=== PATIENT | female | born 1965 | race Caucasian/White ===

== ENCOUNTER → 2025-04-05 09:14 | Outpatient (BNVA) | payer OTHER, SELFPAY | PROVIDERS: PCP Family Medicine; Referring Provider Family Medicine; Visit Provider Internal Medicine Rheumatology | DX: M35.00 Sjogren syndrome, unspecified (principal); M05.79 Rheumatoid arthritis with rheumatoid factor of multiple sites without organ or systems involvement; Z79.899 Other long term (current) drug therapy; Z71.85 Encounter for immunization safety counseling; M06.9 Rheumatoid arthritis, unspecified; M81.0 Age-related osteoporosis without current pathological fracture | CPT/HCPCS: 36415; 80076; 82306; 82565; 85025; 85651; 86140; 86480; 86704; 86803; 87340; 99204 ==

== ENCOUNTER 2025-05-06 11:42 | Outpatient (CLI) | payer OTHER, SELFPAY ==
[2025-05-06 12:08] LABS: Basophils # 0.1 10^3/uL (0.0-0.1); Eosinophils # 0.3 10^3/uL (0.0-0.8); Lymphocytes # 2.7 10^3/uL (0.8-4.8); Mean Corpuscular HGB Conc 30.2 g/dL (30-55); Mean Corpuscular Hemoglobin 24.1 pg (27-33); Mean Corpuscular Volume 79.8 fl (85-98); Mean Platelet Volume 9.4 fL (7.4-10.4); Monocytes # 0.6 10^3/uL (0.2-0.9); Neutrophils # 3.36 10^3/uL (1.8-7.7); Neutrophils % 47.7 %; Nucleated Red Blood Cells % 0 %; Platelet Count 323 10^3/cmm (157-399); Red Blood Count 5.64 10^6/uL (3.85-5.65); Red Cell Distribution Width 15.4 % (12.1-15.1); White Blood Count 7.03 10^3/uL (3.29-11.43)
[2025-05-06 12:12] LABS: Erythrocyte Sedimentation Rate 29 mm/hr (0-15)
[2025-05-06 12:25] LABS: Alanine Aminotransferase 12 U/L (0-33); Albumin Level 3.9 g/dL (3.5-5.2); Alkaline Phosphatase 110 U/L (35-105); Aspartate Amino Transferase 19 U/L (0-32); Bilirubin Direct 0.11 mg/dL (0.00-0.30); C Reactive Protein 7.5 mg/L (0.0-4.9); Globulin 3.3 g/dL (1.3-4.6); Glomerular Filtration Rate 73.2 mL/min (90-130); Total Bilirubin 0.2 mg/dL (0.15-1.2); Total Protein 7.2 g/dL (6.6-8.7)
== END 2025-05-06 11:43 | disposition home or self-care (01) ==
LOC: LAB 11:48
PROVIDERS: PCP Family Medicine; Visit Provider Internal Medicine Rheumatology
DX: Z79.899 Other long term (current) drug therapy (principal)
CPT/HCPCS: 36415; 80076; 82565; 85025; 85651; 86140

== ENCOUNTER 2025-05-17 10:42 | Emergency (ER) | payer MEDICARE, SELFPAY ==
[2025-05-17 10:49] VITALS: BP 145/89; PULSE 84; RESP 18; TEMP 36.7; O2SAT 98
--- OUTSIDE RECORDS SUMMARY | 2025-05-17 11:03 | XMS_ITS | Clinical Summary ---
Author Organization [facility] Coral Address [facility] [address] [place] [address] Care Team Providers Care Office Machine Embossograph Operator Name Role Phone Chun Curiel MD Primary Care Provider [phone] Allergies Active Allergy Reactions Criticality Noted Date Comments Adalimumab Rash Low 11/05/2021 Lesions at injection site and rash at other locations on the body. Duloxetine Confusion Low 08/01/2021 Gabapentin Diarrhea,Rash Low 07/31/2021 Hydrocodone Diarrhea,Rash Low 07/31/2021 Leflunomide Anaphylaxis High 02/07/2025 Rash, throat swelling Morphine Diarrhea,Rash Low 07/31/2021 Nirmatrelvir-Ritonavir Nausea and Vomiting Low 01/2022 Oxycodone Diarrhea,Rash Low 07/31/2021 Prednisone Rash High 08/26/2022 Beet red from head to mid chest. Pregabalin Diarrhea,Rash Low 07/31/2021 Sulfa (Sulfonamide Antibiotics) Diarrhea,Rash Low 07/31/2021 Tramadol Diarrhea,Rash Low 07/31/2021 Medications VITAMIN B COMPLEX ORAL Take by mouth 2 times daily. Active OTHER 1,000 mg daily. Turmeric Curcumin complex 1000 mg by mouth daily Active cholecalciferol, vitamin D3, 5,000 unit Take 5,000 Units by mouth daily. Active OMEGA-3 FATTY ACIDS-FISH OIL ORAL Take 1,000 mg by mouth daily. Active omeprazole (PriLOSEC) 20 mg Capsule, Delayed Release(E.C.) Take 1 Capsule (20 mg) by mouth 2 times daily. 180 Capsule 3 022 Active amitriptyline (ELAVIL) 25 mg tablet Take 1 Tablet (25 mg) by mouth daily at bedtime. 30 Tablet 3 024 Active MAGNESIUM OXIDE ORAL Take by mouth. Active meloxicam (MOBIC) 15 mg tabletIndications:Rheum atoid arthritis involving multiple sites with positive rheumatoid factor ([facility]) Take 1 Tablet (15 mg) by mouth daily. 30 Tablet 1 024 Active Additional Information Patient not taking.Reported on 03/24/2025 pilocarpine (SALAGEN) 5 mg TabletIndications:Sjogr en's syndrome with keratoconjunctivitis sicca Take 1 Tablet (5 mg) by mouth daily. Take one tablet by mouth for 90 days 90 Tablet 3 025 Active Active Problems Problem Noted Date Diagnosed Date Piriformis syndrome of both sides 09/01/2024 Meralgia paresthetica of both lower extremities 09/01/2024 Greater trochanteric bursitis of both hips 09/01 Acute cystitis without hematuria 07/22/2023 Migraine without aura and wi thout status migrainosus, not intractable 08/29/2022 Dyslipidemia 05/05/2022 Family history of colon cancer in father 022 Plantar fasciitis of left foot 12/06/2021 Primary osteoarthritis of left foot 12/06/2021 Calcaneal spur, left foot 12/05/2021 Primary osteoarthritis involving multiple joints 08/04/2021 Irritable bowel syndrome wit h both constipation and diarrhea 08/01/2021 Rheumatoid arthritis involvi ng multiple sites with positive rheumatoid factor 07/31/2021 Sjogren's syndrome 07/31/2021 Fibromyalgia 07/31/2021 Chronic anemia 07/31/2021 Gastroesophageal reflux disease without esophagi tis 07/31/2021 Severe obesity (BMI 35.0-39.9) with comorbidity 07/31/2021 History of colon polyps 07/31/2021 Encounters Date Type Department Care Team Description 05/10/2025 External Device Data STL ABSTRACTION Provider, Abstract 04/14/2025 External Device Data STL ABSTRACTION Provider, Abstract 04/04/2025 Orders Only [facility]- [facility] [place] [facility] [address] [phone] Roverto Diane MD Immunosuppression due to drug therapy 04/03/2025 Results Follow-Up [place] [address] [place] [phone] Chun Curiel MD CBC WITH DIFFERENTIAL, COMPREHENSIVE METABOLIC PANEL, LIPID PANEL, TSH REFLEXIVE 04/01/[address] [address] Chun Curiel MD [facility] 03/28/[address] [address] Chun Curiel MD Provider Call 03/24/2025 3:00 PM CDT Office Visit [address] [phone] Chun Curiel MD Medicare annual wellness visit, subsequent (Primary Dx); Dyslipidemia; Migraine without aura and without status migrainosus, not intractable; Cervical pain (neck) from Last 3 Months Family History Medical History Relation Name Comments Colon Cancer Father Cancer Maternal Grandmother Hypertension Maternal Grandmother Kidney Disease Maternal Grandmother Hypertension Paternal Grandmother Breast Cancer Neg Hx Melanoma Neg Hx Ovarian Cancer Neg Hx Pancreatic Cancer Neg Hx Uterine or Endometrial Cance r, Not Including Cervical Neg Hx Relation Name Status Comments Father Maternal Grandmother Paternal Grandmother Social History Tobacco Use Types Packs/Day Years Used Date Smoking Tobacco: Never Passive Smoke Exposure: Never Smokeless Tobacco: Never Tobacco Cessation:Counseling Given: Not Answered Alcohol Use Standard Drinks/Week Comments Never 0 (1 standard drink = 0.6 oz pur e alcohol) Financial Resource Strain Answer Date R ecorded How hard is it for you to pa y for the very basics like food, housing, medical care, and heating? Somewhat hard 08/26/2022 Food Insecurity Answer Date Recorded In the past 12 months, have you worried that your food would run out before you had money to buy more? Often true 08/26/2022 In the past 12 months, did y ou run out of food and didn't have money to buy more? Often true 08/26/2022 Transportation Needs Answer Date Record ed In the past 12 months, has l ack of transportation kept you from medical appointments or from getting medications? No 08/26/2022 Lack of Transportation (Non-Medical) Not on file 08/26/2022 Feeling Safe Answer Date Recorded Are you in a relationship wi th someone who hurts you emotionally and/or physically? No 07/21/2023 Comments No Sex and Gender Information Value Date Recorded Sex Assigned at Not on file Legal Sex Female 12:03 PM CDT Gender Identity Not on file Sexual Orientation Not on file Last Filed Vital Signs Vital Sign Reading Time Taken Comments Blood Pressure 106/70 03/24/2025 3:06 PM CDT Pulse 73 03/24/2025 3:06 PM CDT Temperature 36.2 C (97.1 F) 03/24/2025 3:06 PM CDT Respiratory Rate 16 02/07/2025 1:27 PM CDT Oxygen Saturation 98% 03/24/2025 3:06 PM CDT Inhaled Oxygen Concentration - - Weight 95.6 kg (210 lb 12.8 oz) 03/24/2025 3:06 PM CDT Height 160 cm (5' 3 ) 03/24/2025 3:06 PM CDT Body Mass Index 37.34 03/24/2025 3:06 PM CDT Plan of Treatment Upcoming Encounters Date Type Department Care Team (Late st Contact Info) Description 03/29/2026 10:20 AM CDT Office Visit [facility] Medicine [address] [phone] Chun Curiel MD [address] [place] [phone] Health Maintenance Due Date Last Done Comments DTAP/TDAP/TD VACCINES (1 - Tdap) 1983 FIT-DNA Q 3 years 2009 FIT/FOBT Q 1 year 2009 Flex Sig/CT Colonography Q 5 years 2009 ZOSTER VACCINE (1 of 2) 2014 RSV VACCINE (60+ or ) (1 - Risk 60-74 years 1-dose series) 2024 PAP SMEAR 08/29/2025 08/29/2022 BREAST CANCER SCREENING 11/11/2025 11/11/20 24, 10/13/2024, 09/27/2022 Pre-Diabetes and Diabetes Screening 02/05/2027 02/06/2024 CERVICAL CANCER SCREENING 08/29/2027 HPV/Cotest (21-29) 08/29/2027 08/29/2022 HPV/Cotest (30-65) 08/29/2027 08/29/2022 COLORECTAL SCREENING 10/08/2027 10/08/2022, 10/08/2022, 12/08/2020 Colorectal Cancer Screening 10/08/2027 INFLUENZA VACCINE Completed 09/01/2024, 08/29/2022 Medicare Advantage (DC) Preventative Visit/Annual Wellness Visit Completed 03/24/2025, 09/01/2024, 03/20/2023, Additional history exists HEPATITIS B VACCINES Aged Out No long er eligible based on patient's age to complete this topic Procedures Procedure Name Priority Date/Time Associated Diagnosis Comments TSH REFLEXIVE Routine 03/24/2025 3:29 PM CDT Dyslipidemia LIPID PANEL Routine 03/24/2025 3:29 PM CDT Dyslipidemia COMPREHENSIVE METABOLIC PANEL Routine 03/24/2025 3:29 PM CDT Medicare annual wellness visit, subsequent CBC WITH DIFFERENTIAL Routine 03/24/2025 3:29 PM CDT Medicare annual wellness visit, subsequent MAMMO DIAG UNI RIGHT 3D ZORAN W OR WO CAD Routine 11/11/2024 1:39 PM PHP WEB DEVELOPER Inconclusive mammogram HEMOGLOBIN A1C Routine 02/06/2024 1:26 PM CDT Encounter for annual wellness visit (AWV) in Medicare patient COLONOSCOPY REPORT 10/08/2022 11 :20 AM PHP WEB DEVELOPER CERV/VAG CYTO SCREEN PAP W/HPV Routine 08/29/2022 11:03 AM CDT Routine general medical examination at health care facility Screening for malignant neoplasm of cervix from Last 3 Months or Most Recently Relevant to Health Maintenance Results * TSH REFLEXIVE (03/24/2025 3:29 PM CDT) Pathologist [facility] TSH 2.16 0.40 - 4.50 mIU/L [facility] Comment: Test Performed at: [facility] [address] [address] [address] Damon Elizabeth MD Blood 03/24/2025 3:29 PM CDT 03/25/2025 2:43 AM CDT us Chun Curiel MD CHEMISTRY ORDERABLES Final Resul [facility] [phone] [facility] [address] [address] [place] [address] * (ABNORMAL) CBC WITH DIFFERENTIAL (03/24/2025 3:29 PM CDT) [facility] WBC 8.5 3.8 - 10.8 Thousand/u L [facility] RBC 5.93(H) 3.80 - 5.10 Million/uL [facility] HEMOGLOBIN 14.6 11.7 - 15.5 g/dL [facility] HEMATOCRIT 47.3(H) 35.0 - 45.0 % [facility] MCV 79.8(L) 80.0 - 100.0 fL [facility] MCH 24.6(L) 27.0 - 33.0 pg [facility] MCHC 30.9(L) 32.0 - 36.0 g/dL [facility] Comment: For adults, a slight decrease in the calculated MCHC value (in the range of 30 to 32 g/dL) is most likely not clinically significant; however, it should be interpreted with caution in correlation with other red cell parameters and the patient's clinical condition. RDW 15.0 11.0 - 15.0 % [facility] PLATELETS 347 140 - 400 Thousand/u L [facility] MPV 10.4 7.5 - 12.5 fL [facility] NEUTROPHIL ABSOLUTE 4,590 1,500 - 7,800 cells/uL [facility] LYMPHOCYTE ABSOLUTE 3,188 850 - 3,900 cells/uL [facility] MONOCYTE ABSOLUTE 493 200 - 950 cells/uL [facility] EOSINOPHIL ABSOLUTE 170 15 - 500 cells/uL [facility] BASOPHILS ABSOLUTE 60 0 - 200 cells/uL [facility] NEUTROPHIL 54 % [facility] LYMPHOCYTES 37.5 % [facility] MONOCYTE 5.8 % [facility] EOSINOPHILS 2.0 % [facility] BASOPHILS 0.7 % [facility] Comment: Test Performed at: [facility] [address] [place] [address] Damon Elizabeth MD Blood 03/24/2025 3:29 PM CDT 03/25/2025 2:43 AM CDT us Chun Curiel MD HEMATOLOGY ORDERABLES Final Resu lt [facility] [phone] [facility] [address] [facility] [place] [address] * (ABNORMAL) LIPID PANEL (03/24/2025 3:29 PM CDT) CHOLESTEROL 169 <200 mg/dL [facility] HDL 34(L) > OR = 50 mg/dL [facility] TRIGLYCERIDE 177(H) <150 mg/dL [facility] LDL CALCULATED 106(H) mg/dL (calc) [facility] Comment: Reference range: <100 Desirable range <100 mg/dL for primary prevention; <70 mg/dL for patients with CHD or diabetic patients with > or = 2 CHD risk factors. LDL-C is now calculated using the Renea calculation, which is a validated novel method providing better accuracy than the Friedewald equation in the estimation of LDL-C. Cruzito WILDE et al. ARTHUR. 2013;310(19): 9029-6279 (http://education.Lumics.[employer]/faq/CYC998) CHOL/HDL RATIO 5.0(H) <5.0 (calc) [facility] NON-HDL CHOLESTEROL 135(H) <130 mg/dL (calc) [facility] Comment: For patients with diabetes plus 1 major ASCVD risk factor, treating to a non-HDL-C goal of <100 mg/dL (LDL-C of <70 mg/dL) is considered a therapeutic option. Test Performed at: [facility] [address] [place] [address] Damon Elizabeth MD Blood 03/24/2025 3:29 PM CDT 03/25/2025 2:43 AM CDT us Chun Curiel MD CHEMISTRY ORDERABLES Final Resul t [facility] [phone] [facility] [address] [place] [address] * (ABNORMAL) COMPREHENSIVE METABOLIC PANEL (03/24/2025 3:29 PM CDT) GLUCOSE 89 65 - 99 mg/dL [facility] Comment: Fasting reference interval BUN 17 7 - 25 mg/dL [facility] CREATININE 1.15(H) 0.50 - 1.05 mg/dL [facility] GFR 55(L) > OR = 60 mL/min/1.7 3m2 [facility] BUN/CREAT RATIO 15 6 - 22 (calc) [facility] SODIUM 143 135 - 146 mmol/L [facility] POTASSIUM 4.3 3.5 - 5.3 mmol/L [facility] CHLORIDE 107 98 - 110 mmol/L [facility] CO2 29 20 - 32 mmol/L [facility] CALCIUM 9.3 8.6 - 10.4 mg/dL [facility] TOTAL PROTEIN 7.0 6.1 - 8.1 g/dL [facility] ALBUMIN 4.1 3.6 - 5.1 g/dL [facility] GLOBULIN 2.9 1.9 - 3.7 g/dL (calc) [facility] ALBUMIN/GLOBULIN RATIO 1.4 1.0 - 2.5 (calc) [facility] BILIRUBIN TOTAL 0.4 0.2 - 1.2 mg/dL [facility] ALKALINE PHOSPHATASE 103 37 - 153 U/L [facility] AST 13 10 - 35 U/L [facility] ALT 8 6 - 29 U/L [facility] Comment: Test Performed at: [facility] [address] [facility] [place] [address] Damon Elizabeth MD Blood 03/24/2025 3:29 PM CDT 03/25/2025 2:43 AM CDT us Chun Curiel MD CHEMISTRY ORDERABLES Final Resul t [facility] [phone] [facility] [address] * MAMMO 3D ZORAN DIAGNOSTIC UNI RT 3D W OR WO CAD (11/11/2024 1:39 PM PHP WEB DEVELOPER) Anatomical Region Laterality Modality Breast Right Mammography 11/11/2024 12:2 4 PM PHP WEB DEVELOPER Impressions 11/11/2024 7:37 PM PHP WEB DEVELOPER IMPRESSION: BI-RADS 1. Negative exam. Continue annual screening mammography. Findings and verbal/written recommendations were conveyed to the patient after completion of the exam. [id number] Narrative 11/11/2024 7:37 PM PHP WEB DEVELOPER EXAMINATION: Right diagnostic mammography with tomosynthesis. Films were reviewed by CAD. Ultrasound right breast. INDICATION: Focal asymmetry right breast noted on recent screening exam COMPARISON: Mammograms dating back to 2021. FINDINGS: There are scattered fibroglandular densities. On spot compression images previously noted focal asymmetry and architectural changes near completely effaced with residual appearance similar to prior studies suggesting summation of normal tissues. Ultrasound was done to exclude underlying suspicious findings. Ultrasound right breast 10:00 position in the region of previous asymmetry shows normal focally dense tissue. No suspicious findings noted. Procedure Note Naheed Lo MD - 11/11/2024 EXAMINATION: Right diagnostic mammography with tomosynthesis. Films were reviewed by CAD. Ultrasound right breast. INDICATION: Focal asymmetry right breast noted on recent screening exam COMPARISON: Mammograms dating back to 2021. FINDINGS: There are scattered fibroglandular densities. On spot compression images previously noted focal asymmetry and architectural changes near completely effaced with residual appearance similar to prior studies suggesting summation of normal tissues. Ultrasound was done to exclude underlying suspicious findings. Ultrasound right breast 10:00 position in the region of previous asymmetry shows normal focally dense tissue. No suspicious findings noted. IMPRESSION: BI-RADS 1. Negative exam. Continue annual screening mammography. Findings and verbal/written recommendations were conveyed to the patient after completion of the exam. [id number] Jaimie Caro DIRECTOR OF TEACHER EDUCATION MAMMO ORDERABLES Final Re sult * HEMOGLOBIN A1C (02/06/2024 1:26 PM CDT) HEMOGLOBIN A1C 5.4 <5.7 % of total Hgb [facility] Comment: For the purpose of screening for the presence of diabetes: <5.7% Consistent with the absence of diabetes 5.7-6.4% Consistent with increased risk for diabetes (prediabetes) > or =6.5% Consistent with diabetes This assay result is consistent with a decreased risk of diabetes. Currently, no consensus exists regarding use of hemoglobin A1c for diagnosis of diabetes in children. According to [place] Diabetes Association (ADA) guidelines, hemoglobin A1c <7.0% represents optimal control in non- diabetic patients. Different metrics may apply to specific patient populations. Standards of Medical Care in Diabetes(ADA). ESTIMATED AVERAGE GLUCOSE (MG/DL) 108 mg/dL [facility] ESTIMATED AVERAGE GLUCOSE (MMOL/L) 6.0 mmol/L [facility] Comment: This test was performed on the [employer] c8000 platform. Please be advised that [facility] will move hemoglobin A1c testing to the Leanne platform soon. In general, direct comparison of the results from different platforms is not recommended. Test Performed at: [facility] [address] [place] [address] Damon Elizabeth MD Blood 02/06/2024 1:26 PM CDT 02/07/2024 2:45 AM CDT us Jaimie Caro DIRECTOR OF TEACHER EDUCATION CHEMISTRY ORDERABLES Dot [facility]orman Result [facility] [phone] [facility] [address] [address] [address] * COLONOSCOPY REPORT (10/08/2022 11:20 AM PHP WEB DEVELOPER) Narrative Procedure Note Saurav Richardson MD - 10/08/2022 11:20 AM CST [facility] GI Patient Name: Shasha Wesley Procedure Date: 10/08/2022 Date of : 1965 Admit Type: Outpatient Age: 56 Attending MD: Saurav Richardson , , Procedure: Colonoscopy Indications: High risk colon cancer surveillance: Personal history of non-advanced adenoma, Family history of colon cancer in a first-degree relative before age 60 years, Last colonoscopy 3 years ago Providers: Saurav Richardson Referring MD: Katie Sterling Medicines: Midazolam 4 mg IV, Fentanyl 100 micrograms IV Complications: No immediate complications. Procedure: Pre-Anesthesia Assessment: - The risks and benefits of the procedure and the sedation options and risks were discussed with the patient. All questions were answered and informed consent was obtained. - ASA Grade Assessment: II - A patient with mild systemic disease. After I obtained informed consent, the scope was passed under direct vision. Throughout the procedure, the patient's blood pressure, pulse, and oxygen saturations were monitored continuously. The Colonoscope was introduced through the anus and advanced to 5 cm into the ileum. The colonoscopy was performed without difficulty. The patient tolerated the procedure well. The quality of the bowel preparation was adequate. Estimated Blood Loss: Estimated blood loss: none. Findings: The perianal and digital rectal examinations were normal. The entire examined colon appeared normal on direct and retroflexion views. The terminal ileum appeared normal. Impression: - The entire examined colon is normal on direct and retroflexion views. - The examined portion of the ileum was normal. - No specimens collected. Recommendation: - Repeat colonoscopy in 5 years for surveillance. Saurav Richardson, 10/08/2022 11:20:04 AM Number of Addenda: 0 Note Initiated On: 10/08/2022 10:44 AM Scope Withdrawal Time 0 hours 10 minutes 2 seconds Scope In: 11:00:40 AM Scope Out: 11:12:56 AM [address] [place] Saurav Richardson MD GI PROCEDURE ORDERABLES Final Result * CERV/VAG CYTO SCREEN PAP W/HPV (08/29/2022 11:03 AM CDT) CLINICAL INFORMATION [facility] Comment:Postmenopausal LAST MENSTRUAL PERIOD [facility] [place] Comment:NONE GIVEN PREV PAP: [facility] [place] Comment:NONE GIVEN PREV BX: [facility] [place] Comment:NONE GIVEN SOURCE [facility] [place] Comment:ENDOCERVIX ADEQUACY: [facility] [place] Comment: Satisfactory for evaluation. Endocervical/transformation zone component present. Age and/or menstrual status not provided PAP INTERP [facility] [place] Comment:Negative for intraep ithelial lesion or malignancy. COMMENT (PAP TEST) [facility] [place] Comment: This Pap test has been evaluated with computer assisted technology. CERTIFIED CONTROL SYSTEMS TECHNICIAN: Sid Haines Comment: LM, CT(ASCP) CT screening location: [place] [address] [place] [address] EXPLANATORY NOTE [facility] Comment: EXPLANATORY NOTE: The Pap is a screening test for cervical cancer. It is not a diagnostic test and is subject to false negative and false positive results. It is most reliable when a satisfactory sample, regularly obtained, is submitted with relevant clinical findings and history, and when the Pap result is evaluated along with historic and current clinical information. HPV E6/E7 Not Detected Not Detected [facility] Comment: Methodology: Commercial Shrimping Captain-Mediated Amplification This assay detects E6/E7 viral messenger RNA (mRNA) from 14 high-risk HPV types (16,18,31,33,35,39,45,51,52,56,58,59,66,68). Cervical sources are required for HPV testing. If a vaginal source from a patient who has had a total hysterectomy with removal of cervix was submitted, please contact the testing laboratory for alternative testing options. For additional information, please refer to http://education.PicApp/faq/YJQ710g2 (This link if provided for information/ educational purposes only.) Test Performed at: [facility] [address] [place] [address] Gilles De La Rosa D.O., MPH [facility] Genital SWAB OF ENDOCERVIX / Unknown 08/29/2022 11:03 AM CDT 08/30/2022 6:52 AM CDT Randee KUMARP PATHOLOGY/CYTOLOGY ORDERABLES Final Result Performing Organization Address City/State/ZIP Co fl Phone Number [facility] [phone] [email or web address] [address] [place] [address] from Last 3 Months or Most Recently Relevant to Health Maintenance Insurance [facility] Advance Directives For more information, please contact: [phone] * Full Code (Latest Code Status on File) Date Activated Date Inactivated Comments 10/08/2022 9:44 AM 10/08/2022 2:00 PM Care Teams Office Machine Embossograph Operator Relationship Specialty Start Date End Date Chun Curiel MD [address] [place] [phone] PCP - General Family Practice 02/25/24
--- OUTSIDE RECORDS SUMMARY | 2025-05-17 11:04 | XMS_ITS | Patient Health Record ---
Author Organization [employer] [facility] Address [address] [facility] [address] [place] [address] Care Team Providers Care Cloud Architect Name Role Phone NOT IN COMPUTER, NOT IN COMPUTER Primary Care Pr ovider Unavailable Shakila Hernandezhlad Unavailable [phone] Allergies Allergen (clinical drug ingredient) Drug/Non Drug Allergy documented on EMR Reaction Allergy Type Onset Date Status Plaquenil, Sulfasalazine (uncoded) Unknown Allergy Active Substance with sulfonamide structure and antibacterial mechanism of action (substance) Sulfa (uncoded) Unknown Allergy Active Steroids Steroids (uncoded) Unknown Allergy A ctive All pain meds (uncoded) Unknown Allergy Active Lyrica, gabapentin (uncoded) Unknown Allergy Active Reason For Referral No Information Medications Medication SIG (Take, Route, Frequency, Duration) Notes Start Date End Date Status Pilocarpine HCl 5mg po daily A ctive Pilocarpine HCl 5 MG 1 tablet Orally once a day for 90 days 12/05/2020 Active Amitriptyline HCl 10mg po qHS Active Vitamin D2 1.25mg po weekly Not-Taking Methotrexate 2.5 MG 6 tablets Orally once per week for 90 days 05/02/2020 Active Methotrexate 15mg po weekly Ac tive Super B Complex Acti ve Ibuprofen 800mg po PRN Active Omeprazole 20mg po daily Activ e [place] 3 Active Vitamin D3 2000Iu po daily Active Ibuprofen 800 MG 1 tablet with food or milk as needed Orally twice a day as needed for joint pain for 30 days 08/22/2020 Active Social History Tobacco Use: Social History Observation Description Date Details (start date - stop date) Never Smoker NA - NA Tobacco Use/Smoking Question Answer Notes Are you a nonsmoker Section Notes: , 3 biological children not worked since 2013, 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, 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 non 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 denies etoh, drug use , 3 biological children not worked since 2013, 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, 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 non 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 denies etoh, drug use Problems Problem Type SNOMED Code ICD Code Onset Dates Problem Status W/U Status Risk Notes Problem Fibromyalgia (995166995) Fibromyalgia (M79.7) Active confirmed Problem Rheumatoid arthritis (36377432) seropositive RA (M05.79) Active confirmed Problem Serology positive (236888569) abnormal serology (R76.8) Active confirmed Problem Long-term current use of drug therapy (534149025) senior care medication use (Z79.899) Active confirmed Problem Sjogren's syndrome (48364169) Sjogren's syndrome (M35.0) Active confirmed Plan Of Treatment No Information Insurance Providers Payer Name Payer Address Payer Phone Subscriber Number Group Number Insured Name Patient Relationship to Insured Coverage Start Date Coverage End Date [employer] [address] [address] [place] [id number] Shasha Rush Self - patient is the insured Medical (General) History Medical History History ICD Code RA, Sjogren's syndrome: RF 2 3, neg CCP, long history of sx, formal dx 2004 (Dr. Roberto Dupont, [place], 2 visits only), no rheum f/u until 2019 (Dr. Roberto Aguero, [place], [place]); allergy to HCQ (face rash, throat closing); start MTX PO in 2019, tolerating well Fibromyalgia 04/2020: SSA >8, neg JOHANNA, SSB, Sm, LEAD DATA ENTRY OPERATOR, d sDNA, CCP, normal SPEP 07/2020: neg Q Gold, RF 23 Surgical History Surgery Date(Month/Year) Tubal ligation
--- OUTSIDE RECORDS SUMMARY | 2025-05-17 11:04 | XMS_ITS | Encounter Summary ---
Author Organization [facility] Address [address] [place] [address] Care Team Providers Care Environmental Compliance Officer Name Role Phone Chun Curiel MD Primary Care Provider [phone] Encounter Details Date Type Department Care Team (Late Contact Info) Description 05/10/2025 External Device Data [place] ABSTRACTION Provider, Abstract NO ADDRESS ON FILE Social History Tobacco Use Types Packs/Day Years Used Date Smoking Tobacco: Never Passive Smoke Exposure: Never Smokeless Tobacco: Never Alcohol Use Standard Drinks/Week Comments Never 0 [...] on file Sexual Orientation Not on file documented as of this encounter Plan of Treatment Upcoming Encounters Date Type Department Care Team (Late Contact Info) Description 03/29/2026 10:20 AM CDT Office Visit [facility] Medicine [facility] [address] [phone] Chun Curiel MD [address] [place] [phone] documented as of this encounter Visit Diagnoses Not on filedocumented in this encounter Additional Health Concerns Assessment Noted Time PHQ-9 Depression Total Score: 1 03/24/20 25 2:59 PM CDT documented as of this encounter Care Teams Environmental Compliance Officer Relationship Specialty Start Date End Date Chun Curiel MD [address] [phone] PCP - General Family Practice 02/25/24 documented as of this encounter
--- OUTSIDE RECORDS SUMMARY | 2025-05-17 11:04 | XMS_ITS | Encounter Summary ---
Author Organization [facility] Address [address] [place] [address] Care Team Providers Care Sound Installation Worker Name Role Phone Chun Curiel MD Primary Care Provider [phone] Encounter Details Date Type Department Care Team (Latest Contact Info) Description 04/03/2025 Results Follow-Up [facility] Medicine [address] [phone] Chun Curiel MD [address] [phone] CBC WITH DIFFERENTIAL, COMPREHENSIVE METABOLIC PANEL, LIPID PANEL, TSH REFLEXIVE Social History Tobacco Use Types Packs/Day Years [...] on file documented as of this encounter Miscellaneous Notes * Result Encounter Note - Shannan Dick - 04/05/2025 10:46 AM CDT Patient's given the results. stated that the patient was with the doctor. Please send the hematology referral. * Result Encounter Note - Sydnie Farnsworth - 04/04/2025 11:33 AM CDT Called and was not able to leave a message due to in-box being full. documented in this encounter Plan of Treatment Upcoming Encounters Date Type Department Care Team (Late st Contact Info) Description 03/29/2026 10:20 AM CDT Office Visit [facility] Medicine [address] [phone] Chun Curiel MD [address] [place] [phone] documented as of this encounter Visit Diagnoses Not on filedocumented in this encounter Additional Health Concerns Assessment Noted Time PHQ-9 Depression Total Score: 1 03/24/20 25 2:59 PM CDT documented as of this encounter Care Teams Sound Installation Worker Relationship Specialty Start Date End Date Chun Curiel MD [address] [phone] PCP - General Family Practice 02/25/24 documented as of this encounter
[2025-05-17 11:37] LABS: Basophils # 0.1 10^3/uL (0.0-0.1); Basophils % 0.5 %; Eosinophils # 0.1 10^3/uL (0.0-0.8); Eosinophils % 0.8 %; Hematocrit 43.8 % (36-47); Lymphocytes # 2.8 10^3/uL (0.8-4.8); Lymphocytes % 22.1 %; Mean Corpuscular HGB Conc 31.5 g/dL (30-55); Mean Corpuscular Hemoglobin 24.8 pg (27-33); Mean Corpuscular Volume 78.6 fl (85-98); Mean Platelet Volume 9.6 fL (7.4-10.4); Monocytes % 7.6 %; Neutrophils # 8.72 10^3/uL (1.8-7.7); Neutrophils % 68.7 %; Nucleated Red Blood Cells % 0 %; Platelet Count 320 10^3/cmm (157-399); Red Blood Count 5.57 10^6/uL (3.85-5.65); Red Cell Distribution Width 15.5 % (12.1-15.1); White Blood Count 12.68 10^3/uL (3.29-11.43)
[2025-05-17 11:58] LABS: Alanine Aminotransferase 6 U/L (0-33); Albumin Level 3.7 g/dL (3.5-5.2); Alkaline Phosphatase 113 U/L (35-105); Anion Gap 18.7 (5-19); Aspartate Amino Transferase 13 U/L (0-32); Blood Urea Nitrogen 13 mg/dL (8-23); Calcium 8.6 mg/dL (8.5-10.5); Carbon Dioxide 18 mmol/L (22-29); Chloride 106 mmol/L (98-107); Globulin 3.7 g/dL (1.3-4.6); Glomerular Filtration Rate 85.4 mL/min (90-130); Glucose 87 mg/dL (65-115); Lipase 35 U/L (13-60); Osmolality Calculated 287 mOsm/kg (285-295); Potassium 3.7 mmol/L (3.5-5.1); Sodium 139 mmol/L (136-145); Total Bilirubin 0.5 mg/dL (0.15-1.2); Total Protein 7.4 g/dL (6.6-8.7)
[2025-05-17 12:43] LABS: Bilirubin Urine Negative (Negative); Blood Urine Negative (Negative); Glucose Urine UA Negative (Normal); Ketones Urine Trace (Negative); Leukocyte Esterase Urine 2+ (Negative); Nitrate Urine Negative (Negative); Protein Urine Trace (Negative); Urine Appearance Cloudy (CLEAR); Urine Color Yellow (Yellow); pH Urine 5.5 (5-7)
[2025-05-17 12:45] LABS: Add Urine Microscopic? YES; Bacteria Urine Trace /hpf; RBC Urine 0-2 /hpf (0-2); WBC Urine 21-50 /hpf (0-5)
[2025-05-17 12:54] LABS: Add Urine Culture? Yes
--- NOTE | 2025-05-17 13:21 | US_ITS ---
WS: [id number] RIGHT UPPER QUADRANT ULTRASOUND HISTORY: ruq pain COMPARISON: None available. Liver: 15.3 cm in length. Normal size liver and echogenicity. No bile duct dilatation or mass. Portal Vein: Normal hepatopetal flow with monophasic waveform. Gallbladder: Normally distended gallbladder with stones. No wall thickening or pericholecystic fluid. CBD: 0.3 cm Pancreas: Normal size and echogenicity. Right kidney: 9.4 cm in length. Normal size and echogenicity. No hydronephrosis or mass. Aorta and IVC: Unremarkable abdominal aorta and IVC. No ascites. US/US gall bladder [id number] IMPRESSION: Cholelithiasis without evidence for acute cholecystitis.
--- NOTE | 2025-05-17 13:22 | W.ED.ABDPA2 ---
HPI - Abdominal Pain General: Chief Complaint: Abdominal Pain Stated Complaint: right side back/abdominal pain Time Seen by Provider: 05/17/25 13:04 Source: patient Mode of arrival: ambulatory Limitations: no limitations History of Present Illness: 59-year-old female states that she has been having right upper quadrant abdominal pains going on for the last 3 days states it radiates to her back states that it comes and goes denies any worse or improving factors she rates her pain an 8 out of 10 currently she has nausea no vomiting denies any fever no history of cholecystectomy in the past Associated Symptoms: Reports nausea; Denies chills, diarrhea, dysuria, fever(s) and vomiting Related Data Home Medications ?Medication ?Instructions ?Recorded ?Confirmed amitriptyline 10 mg tablet 10 mg PO DAILY 07/14/22 04/05/25 omega 7-szi-nrt-fish oil 100 cap PO 07/14/22 04/05/25 mg-160 mg-1,000 mg capsule (Fish Oil) Previous Rx's ?Medication ?Instructions ?Recorded azathioprine 50 mg tablet 50 mg PO BID #60 tabs 04/05/25 pilocarpine HCl 5 mg tablet 5 mg PO TID #90 tabs 04/05/25 ondansetron 4 mg disintegrating 4 mg PO Q6H PRN nausea and 05/17/25 tablet vomiting #14 tabs Allergies Allergy/AdvReac Type Severity Reaction Status Date / Time morphine Allergy Severe ALGY-Anaphy Verified 04/05/25 10:09 laxis nirmatrelvir (From Paxlovid) Allergy Severe ALGY-Anaphy Verified 04/05/25 10:01 laxis ritonavir (From Paxlovid) Allergy Severe ALGY-Anaphy Verified 04/05/25 10:01 laxis adalimumab (From Humira) Allergy Intermediate adv-rash Verified 04/05/25 10:09 pregabalin (From Lyrica) Allergy Intermediate migraine Verified 04/05/25 10:09 Opioids - Morphine Analogues Allergy Unknown Verified 04/05/25 10:01 Sulfa (Sulfonamide Allergy Unknown Verified 04/05/25 10:01 Antibiotics) opioids Allergy Unknown Uncoded 04/05/25 10:01 steroids Allergy Unknown Uncoded 04/05/25 10:01 Review of Systems Const: Denies: fever(s), chills, body aches or change in appetite ENMT: Denies: throat pain or dental pain Card: Denies: chest pain Resp: Denies: dyspnea GI: Reports: abdominal pain and nausea; Denies: vomiting or diarrhea : Denies: dysuria Musc: Denies: neck pain or back pain Skin/Breast: Denies: rash Neuro: Denies: headache(s) PFSH ED PFSH: Medical History Seropositive rheumatoid arthritis of multiple sites Immunization counseling High risk medication use Primary Sjogren's syndrome Rheumatoid arthritis Surgical History (Updated 04/05/25 @ 13:16 by Abilio Morales MD) History of tubal ligation Family History (Updated 04/05/25 @ 10:07 by Ameena Fraga LPN) Other Cancer Diabetes Heart disease Hypertension Lupus (systemic lupus erythematosus) Migraines Osteoporosis Rheumatoid arthritis Social History Smoking and tobacco/nicotine status: never used tobacco/nicotine Female Reproductive History: Spontaneous abortions: No Physical Exam Const: COMMON NORMALS: no acute distress, patient oriented x3 and healthy appearing HENMT: COMMON NORMALS: normocephalic and atraumatic HEAD & SCALP: normocephalic and atraumatic Neck/C-Spine: COMMON NORMALS: full ROM and supple Chest: COMMONS NORMALS: normal inspection of the chest Resp: COMMON NORMALS: normal respiratory effort, No retractions, No use of accessory muscles and clear to auscultation bilaterally AUSCULTATION: clear to auscultation bilaterally Cardio: COMMON NORMALS: regular rate, regular rhythm and No murmurs present (Cardio) RATE: regular rate RHYTHM: regular rhythm GI: COMMON NORMALS: Normal to inspection, nondistended, normoactive bowel sounds present, Soft to palpation and no masses PALPATION: Yes Soft to palpation and Yes Tenderness to palpation present (GI) Details: RUQ Extremity: COMMON NORMALS: normal to inspection and full ROM Neuro: COMMON NORMALS: patient oriented x3, moves all extremities and no focal motor deficits Psych: COMMON NORMALS: mental status grossly normal, Normal thought process present and cooperative THOUGHT PROCESS: Normal thought process present Skin: COMMON NORMALS: no rashes or lesions noted and no wounds GENERAL SKIN EXAM: no rashes or lesions noted Course Vital Signs: Vital signs: Vital Signs Temperature 98.0 F 05/17/25 10:49 Pulse Rate 73 05/17/25 15:00 Respiratory Rate 18 05/17/25 10:49 Blood Pressure 110/62 05/17/25 15:00 Pulse Oximetry 97 05/17/25 15:00 Oxygen Delivery Me thod Room Air 05/17/25 15:00 MDM - Abdominal Pain Medical Decision Making Patient presents with abdominal pain likely biliary colic from cholelithiasis no signs of cholecystitis her pain improved here after Toradol abdominal exam at discharge benign we will get her follow-up with surgery she is return if worsening she understands agrees plan Medical Records I reviewed the patient's medical records. Lab Data I reviewed the patient's lab results. 05/17/25 11:23 05/17/25 11:23 Labs/Radiology: Radiology Impressions Gallbladder Ultrasound 05/17/25 13:21 IMPRESSION: Cholelithiasis without evidence for acute cholecystitis. Abdomen/Pelvis CT 05/17/25 14:17 IMPRESSION: 1. No acute abdominal or pelvic abnormalities. 2. Cholelithiasis without evidence for acute cholecystitis. 3. No GI tract obstruction. 4. No pancreatitis. 5. Minimal diverticular disease without acute diverticulitis. 6. Normal appendix. Laboratory Results WBC 12.68 10^3/uL (3.29-11.43) H 05/17/25 11:23 RBC 5.57 10^6/uL (3.85-5.65) 05/17/25 11:23 Hgb 13.80 g/dL (11.27-16.99) 05/17/25 11:23 Hct 43.8 % (36-47) 05/17/25 11:23 MCV 78.6 fl (85-98) L 05/17/25 11:23 MCH 24.8 pg (27-33) L 05/17/25 11:23 MCHC 31.5 g/dL (30-55) 05/17/25 11:23 RDW 15.5 % (12.1-15.1) H 05/17/25 11:23 Plt Count 320 10^3/cmm (157-399) 05/17/25 11:23 MPV 9.6 fL (7.4-10.4) 05/17/25 11:23 Neut % (Auto) 68.7 % 05/17/25 11:23 Lymph % (Auto) 22.1 % 05/17/25 11:23 [place] % (Auto) 7.6 % 05/17/25 11:23 Eos % (Auto) 0.8 % 05/17/25 11:23 Baso % (Auto) 0.5 % 05/17/25 11:23 Neut # (Auto) 8.72 10^3/uL (1.8-7.7) H 05/17/25 11:23 Lymph # (Auto) 2.8 10^3/uL (0.8-4.8) 05/17/25 11:23 [place] # (Auto) 1.0 10^3/uL (0.2-0.9) H 05/17/25 11:23 Eos # (Auto) 0.1 10^3/uL (0.0-0.8) 05/17/25 11:23 Baso # (Auto) 0.1 10^3/uL (0.0-0.1) 05/17/25 11:23 Nucleated RBC % (auto) 0 % 05/17/25 11:23 Nucleated RBCs # 0.0 /100WBC 05/17/25 11:23 Sodium 139 mmol/L (136-145) 05/17/25 11:23 Potassium 3.7 mmol/L (3.5-5.1) 05/17/25 11:23 Chloride 106 mmol/L (98-107) 05/17/25 11:23 Carbon Dioxide 18 mmol/L (22-29) L 05/17/25 11:23 Anion Gap 18.7 (5-19) 05/17/25 11:23 BUN 13 mg/dL (8-23) 05/17/25 11:23 Creatinine 0.7 mg/dL (0.5-0.9) 05/17/25 11:23 GFR Calculation 85.4 mL/min (90-130) L 05/17/25 11:23 Glucose 87 mg/dL (65-115) 05/17/25 11:23 Calculated Osmolality 287 mOsm/kg (285-295) 05/17/25 11:23 Calcium 8.6 mg/dL (8.5-10.5) 05/17/25 11:23 Total Bilirubin 0.5 mg/dL (0.15-1.2) 05/17/25 11:23 AST 13 U/L (0-32) 05/17/25 11:23 ALT 6 U/L (0-33) 05/17/25 11:23 Alkaline Phosphatase 113 U/L (35-105) H 05/17/25 11:23 Total Protein 7.4 g/dL (6.6-8.7) 05/17/25 11:23 Albumin 3.7 g/dL (3.5-5.2) 05/17/25 11:23 Globulin 3.7 g/dL (1.3-4.6) 05/17/25 11:23 Lipase 35 U/L (13-60) 05/17/25 11:23 Urine Color Yellow (Yellow) 05/17/25 12:30 Urine Appearance Cloudy (CLEAR) A 05/17/25 12:30 Urine pH 5.5 (5-7) 05/17/25 12:30 Ur Specific [place] 1.020 (1.005-1.030) 05/17/25 12:30 Urine Protein Trace (Negative) A 05/17/25 12:30 Urine Glucose (UA) Negative (Normal) 05/17/25 12:30 Urine Ketones Trace (Negative) 05/17/25 12:30 Urine Blood Negative (Negative) 05/17/25 12:30 Urine Nitrate Negative (Negative) 05/17/25 12:30 Urine Bilirubin Negative (Negative) 05/17/25 12:30 Urine Urobilinogen 1.0 mg/dL (Negative) 05/17/25 12:30 Ur Leukocyte Esterase 2+ (Negative) A 05/17/25 12:30 Urine RBC 0-2 /hpf (0-2) 05/17/25 12:30 Urine WBC 21-50 /hpf (0-5) H 05/17/25 12:30 Ur Squamous Epith Cells 11-20 /hpf (0-5) H 05/17/25 12:30 Amorphous Sediment Not Reportable 05/17/25 12:30 Urine Bacteria Trace /hpf (NONE) 05/17/25 12:30 Hyaline Casts 0.40 /lpf 05/17/25 12:30 All radiology interpretation(s) finalized by discharge Discharge Plan Discharge Patient Disposition: Home Clinical Impression: Cholelithiasis Abdominal pain Qualifiers: Abdominal location: upper abdomen, unspecified Qualified Code(s): R10.10 - Upper abdominal pain, unspecified Condition: Stable Prescriptions: New ondansetron 4 mg tablet,disintegrating 4 mg PO Q6H PRN (Reason: nausea and vomiting) Qty: 14 0RF No Action pilocarpine HCl 5 mg tablet 5 mg PO TID Qty: 90 5RF azathioprine 50 mg tablet 50 mg PO BID Qty: 60 5RF amitriptyline 10 mg tablet 10 mg PO DAILY Fish Oil 100-160-1,000 mg capsule PO Discharge Orders: Discharge ED (Routine); Ordered 05/17/25 Ordered By: Gregor Oakes Referrals: Geraldo Fay MD [Physician, General Surgery] - 4-7 days Ketan Govea [Primary Care Provider, Family Practice] Discharge Diet: Advance as tolerated Discharge Activity: Resume usual activity Patient Instructions: Biliary Colic (ED), Abdominal Pain (ED) Print Language: Greek Coding Level of Care Code ED Community Engagement Leader for Abigail De Paz
[2025-05-17 14:00] VITALS: BP 118/78; PULSE 81; O2SAT 98
--- NOTE | 2025-05-17 14:17 | CT_ITS ---
WS: [id number] CT ABDOMEN AND PELVIS WITH CONTRAST HISTORY: abd pain TECHNIQUE: Imaging performed of the abdomen and pelvis with IV contrast. Single phase imaging of the abdomen. Coronal and sagittal reformats are submitted. All CT scans at [facility] use at least one of these dose optimization techniques: automated exposure control; mA and/or kV adjustment per patient size (includes targeted exams where dose is matched to clinical indication); or iterative reconstruction. IV CONTRAST: Omnipaque 350; 100 mL IV. Oral contrast: No DLP: 934.31 mGy.cm COMPARISON: Gallbladder ultrasound 05/17/2025 Lower thorax: Lung bases are clear. Heart is normal size. Small hiatal hernia. Liver/biliary system: Normal size liver. No intrahepatic duct dilatation. Central hepatic cysts between the middle and LEFT hepatic veins. Portal vein is normal. Gallbladder: Well-distended gallbladder with stones. No adjacent inflammation. Pancreas: Normal size pancreas and pancreatic duct. No adjacent inflammation. Spleen: Normal size spleen. No mass or infarct. Adrenal glands: Normal. Right kidney: Normal. Left kidney: Normal. Aorta: Normal. Lymphadenopathy: None. Free fluid: None. GI tract: No obstruction. Mild diffuse constipation. Normal appendix. Scattered diverticula with no acute diverticulitis. Abdominal wall: Intact. Pelvis: No free fluid or adenopathy within the pelvis. Bones: Unremarkable. CT/CT abdomen pelvis w con* [id number] IMPRESSION: 1. No acute abdominal or pelvic abnormalities. 2. Cholelithiasis without evidence for acute cholecystitis. 3. No GI tract obstruction. 4. No pancreatitis. 5. Minimal diverticular disease without acute diverticulitis. 6. Normal appendix.
[2025-05-17] MEDS: iohexol 350 mg/mL 500 mL Btl (per mL) IV (14:42)
[2025-05-17 15:00] VITALS: BP 110/62; PULSE 73; O2SAT 97
[2025-05-17] MEDS: ketorolac 30 mg/mL INJ 15 MG IVP (15:04)
[2025-05-17 15:48] VITALS: BP 132/71; PULSE 82; O2SAT 96
== END 2025-05-17 15:49 | disposition home or self-care (01) ==
PROVIDERS: Emergency Provider Emergency Medicine; PCP Family Medicine
DX: K80.20 Calculus of gallbladder without cholecystitis without obstruction (principal); R10.10 Upper abdominal pain, unspecified
CPT/HCPCS: 36415; 74177; 76705; 80053; 81001; 83690; 85025; 87086; 96374; 99285; J1885

== ENCOUNTER → 2025-05-19 10:33 | Outpatient (BNVA) | payer MEDICARE, SELFPAY | PROVIDERS: PCP Family Medicine; Visit Provider Surgery | DX: K82.9 Disease of gallbladder, unspecified (principal) | CPT/HCPCS: 99204 ==

== ENCOUNTER 2025-05-30 06:20 | Day surgery (SDC) | payer MEDICARE, SELFPAY ==
[2025-05-30] VITALS (20 sets, daily range): BP systolic 99–139; BP diastolic 54–78; PULSE 70–85; RESP 7–20; TEMP 36.1–36.3; O2SAT 92–100; BMI 36.5
--- NOTE | 2025-05-30 07:35 | P.ANESASSM_ITS ---
Pre-Anesthetic Assessment Height/Weight: Height 1.6 m Weight 93.44 kg O2 Del Method Room Air 05/30/25 06:43 Operation Date: 05/30/25 09:00 Proposed Procedures p Laparoscopic Cholecystectomy 46003 K82.9(Not Applicable) - Ketan Read MD Familial anesthetic complications: Allergy to opioids - says she can't take any and to treat her pain with toradol and tylenol Was Beta Kranthi taken within 24 hours: N/A Was Clonidine taken within 24 hours: N/A Last intake: Intake Last Liquid Date 05/29/25 Last Liquid Time 21:00 Last Solid Date 05/28/25 Last Solid Time 18:00 Social No alcohol and No tobacco Exam alert, oriented x 3, clear to auscultation bilaterally and regular rate & rhythm Airway Mallampati: Class II Dentition: other (missing) Musc/skel Rheumatoid Arthritis Sjogren's Anesthetic Plan ASA status: 2 Anesthesia: General Risk of > 500 ml blood loss (7ml/kg in children): No Other Pertinent Information NO opioids per patient request d/t allergy/intolerance Medications/Allergies Home Medications ?Medication ?Instructions ?Recorded ?Confirmed ?Last Taken ?Type amitriptyline 10 mg tablet 10 mg PO DAILY 07/14/2206/1705/12/25 History omega 9-vis-fxv-fish oil 100 2 cap PO DAILY 07/14/22 0 05/30/25 05/12/25 History mg-160 mg-1,000 mg capsule (Fish Oil) azathioprine 50 mg tablet 50 mg PO BID #60 tabs 05/30/25 05/12/25 Rx pilocarpine HCl 5 mg tablet 5 mg PO TID #90 tabs 04/0505/30/25 05/12/25 Rx ondansetron 4 mg disintegrating 4 mg PO Q6H PRN nausea and 05/17/25 05/30/25 05/12/25 Rx tablet vomiting #14 tabs Allergies Allergy/AdvReac Type Severity Reaction Status Date / Time morphine Allergy Severe ALGY-Anaphy Verified 05/30/25 06:36 laxis nirmatrelvir (From Paxlovid) Allergy Severe ALGY-Anaphy Verified 05/30/25 06:36 laxis ritonavir (From Paxlovid) Allergy Severe ALGY-Anaphy Verified 05/30/25 06:36 laxis adalimumab (From Humira) Allergy Intermediate adv-rash Verified 05/30/25 06:36 pregabalin (From Lyrica) Allergy Intermediate migraine Verified 05/30/25 06:36 Opioids - Morphine Analogues Allergy Unknown Verified 05/30/25 06:36 Sulfa (Sulfonamide Allergy Unknown Verified 05/30/25 06:36 Antibiotics) opioids Allergy Unknown Uncoded 05/19/25 10:39 steroids Allergy Unknown Uncoded 05/19/25 10:39 [facility] Anesthesia Medical History Seropositive rheumatoid arthritis of multiple sites Immunization counseling High risk medication use Primary Sjogren's syndrome Rheumatoid arthritis Surgical History History of tubal ligation Family History Other Cancer Diabetes Heart disease Hypertension Lupus (systemic lupus erythematosus) Migraines Osteoporosis Rheumatoid arthritis Social History Smoking and tobacco/nicotine status: former use of tobacco/nicotine Female Reproductive History Spontaneous abortions: No
--- NOTE | 2025-05-30 08:16 | W.PM.OPSUD ---
Surgery/Procedure H&P Update DATE OF PROCEDURE: May 30, 2025 DATE H&P PERFORMED: 05/19/25 H&P UPDATE INFORMATION: I have reviewed H&P completed within last 30 days, I have examined patient prior to procedure, No changes to prior documentation, H&P is in [facility] EMR on date indicated and Risks and benefits of the procedure reviewed PLANNED PROCEDURE: Operation Date: 05/30/25 09:00 Proposed Procedures p Laparoscopic Cholecystectomy 86776 K82.9(Not Applicable) - Ketan Read MD
[2025-05-30] MEDS: ceFAZolin 2,000 mg SDV 2000 MG IVP (08:49)
[2025-05-30] MEDS: lidocaine-epi 1% 20 mL INJ 10 ML INJECTION (10:38)
[2025-05-30] MEDS: BUPivacaine 0.25% INJ 10 mL INJECTION (10:38)
--- NOTE | 2025-05-30 11:07 | PM.OP ---
Operative Report Date of procedure: May 30, 2025 Pre-op diagnosis: Biliary colic Post-op diagnosis: Same Post-op findings: Gallbladder appeared to be chronically inflamed, there was significant fat infiltration of the hepatocystic triangle. Otherwise normal biliary anatomy Procedure done: Laparoscopic cholecystectomy Surgeon: Ketan Read MD Accounts Payable Representative: KENAN OR Staff Estimated blood loss: 10 Brief History: This is a 59-year-old female who presents to my office for evaluation for possible cholecystectomy for biliary colic. After discussion we will resume benefits with side to proceed. Procedure: Patient was brought into the OR, she was placed in a supine position. General anesthesia was given. The abdomen was prepped and draped in the usual sterile fashion. A timeout was conducted. the abdomen was accessed via a 5 mm Optiview trocar in the left upper quadrant. Pneumoperitoneum was obtained and no evidence of visceral injury during entry was noted. A 12 mm trocar was placed under direct visualization in the supraumbilical position. Additional 5 mm trocars were placed in the right flank right upper quadrant and epigastrium and 30 direct visualization. The gallbladder was grasped by the fundus and retracted cephalad. Visualization of the hepatocystic triangle was difficult due to the severe fatty infiltration of the area. I grasped the infundibulum and retracted in the inferolateral direction, I then made an opening on the peritoneum anterior to the area where the hepatocystic triangle was suspected to be found. This opening was carried in the medial and lateral direction to the edges of the liver and then on the sides of the gallbladder to follow-up for better visualization. Unfortunately a small hole was made in the gallbladder wall on the left side during this maneuver. The bile was aspirated and the area was suctioned and irrigated. With careful blunt dissection and electrocautery With significant effort I was able to encircle the cystic duct, the cystic artery and I was able to elevate the lower third of the gallbladder from the liver bed thus creating a critical view of safety. The cystic artery and cystic duct were double clipped proximally and single clipped distally and transected. The gallbladder was removed from the liver bed using electrocautery. Small areas of bleeding from the liver bed were controlled with electrocautery. After removal of the gallbladder to the liver bed it was hemostatic and no evidence of bile leak was noted. The gallbladder was retrieved via the umbilical trocar site in an Endo Catch bag. 1 final inspection of the liver bed showed no evidence of bleeding, no bile leak and clips in good position. The area was irrigated and suctioned as well as the right upper quadrant. The umbilical trocar was removed and the area was closed with a Nick-Altagracia suture passer under direct visualization using 0 Vicryl. The epigastrium right upper quadrant right flank trocars were removed under direct visualization, the left upper quadrant trocar was used to acquire the pneumoperitoneum and subsequently removed. Local anesthesia was infiltrated in all the wounds. Hemostasis was achieved. The wounds were closed in layers using #3-0 Vicryl for subcutaneous tissue #4 Monocryl for the skin and Dermabond was applied. At the end of the procedure all counts were correct the patient tolerated well the procedure was transferred to the PACU in stable condition
[2025-05-30] MEDS: ondansetron 2 mg/ML SDV 2 mL 4 MG IVP ×2 (11:17→11:31)
[2025-05-30] MEDS: fentaNYL 50 mcg/mL INJ 2mL IVP ×2 (11:22→11:43)
[2025-05-30] MEDS: metoclopramide 5 mg/mL SDV 2 mL 10 MG IVP (11:48)
--- NOTE | 2025-05-30 12:36 | PC.NURSE ---
Pt not able to take pain meds. Wants to just rest here for a while before going home
--- NOTE | 2025-05-30 13:20 | ANE.PACU2 ---
Inpatient post-anesthesia follow up: Airway intact: Yes Vital signs: Temperature 97.3 F Pulse Rate 80 Respiratory Rate 18 Blood Pressure 132/70 Pulse Oximetry 95 Oxygen Delivery Me thod Room Air Oxygen Flow Rate 4 Fraction of Inspir ed Oxygen Hydration adequate: Yes Nausea and vomiting: No Pain level: 1 Mental status: Baseline
== END 2025-05-30 13:20 | disposition home or self-care (01) ==
PROVIDERS: PCP Family Medicine; Visit Provider Surgery
PROC: 0FT44ZZ Resection of Gallbladder, Percutaneous Endoscopic Approach (ICD-10-PCS; CPT 47562; principal; 2025-05-30 08:50)
DX: K80.10 Calculus of gallbladder with chronic cholecystitis without obstruction (principal); K80.50 Calculus of bile duct without cholangitis or cholecystitis without obstruction; M06.9 Rheumatoid arthritis, unspecified; M35.00 Sjogren syndrome, unspecified; Z87.891 Personal history of nicotine dependence
CPT/HCPCS: 47562; 88304; J0330; J0690; J2250; J2405; J2704; J2765; J3010; J3490; J7030; J9999

== ENCOUNTER → 2025-06-14 07:50 | Outpatient (BNVA) | payer MEDICARE, SELFPAY | PROVIDERS: PCP Family Medicine; Visit Provider Surgery | DX: Z90.49 Acquired absence of other specified parts of digestive tract (principal); Z98.890 Other specified postprocedural states | CPT/HCPCS: 99024 ==

== ENCOUNTER 2025-06-22 14:47 | Emergency (ER) | payer MEDICARE, SELFPAY ==
--- OUTSIDE RECORDS SUMMARY | 2025-06-22 11:30 | XMS_ITS | Encounter Summary ---
Author Organization [facility] Address [address] [place] [address] Care Team Providers Care Beam Builder Helper Name Role Phone Chun Curiel MD Primary Care Provider [phone] Encounter Details Date Type Department Care Team (Latest Contact Info) Description 06/22/2025 11:30 AM CDT Ancillary Procedure [facility] ([place], [place]) [address] [phone] Jaimie Caro FNP [address] [phone] Pleuritic chest pain Social History Tobacco Use Types Packs/Day Years Used Date Smoking Tobacco: Never Passive Smoke Exposure: Never Smokeless Tobacco: Never Alcohol Use Standard Drinks/Week Comments Never 0 (1 standard drink = 0.6 oz pur e alcohol) Comments No Sex and Gender Information Value Date Recorded Sex Assigned at Not on file Legal Sex Female 12:03 PM CDT Gender Identity Not on file Sexual Orientation Not on file documented as of this encounter Plan of Treatment Upcoming Encounters Date Type Department Care Team (Late st Contact Info) Description 03/29/2026 10:20 AM CDT Office Visit [address] [phone] Chun Curiel MD [address] [phone] documented as of this encounter Procedures Procedure Name Priority Date/Time Associated Diagnosis Comments XR CHEST PA AND LATERAL 2 VW Routine 06/22/2025 11:26 AM CDT Pleuritic chest pain documented in this encounter Results * XR CHEST PA AND LATERAL 2 VW (06/22/2025 11:26 AM CDT) Anatomical Region Laterality Modality Chest Computed Radiogr aphy 06/22/2025 11:2 6 AM CDT Impressions 06/22/2025 12:38 PM CDT IMPRESSION: See below. Exam: XR CHEST PA AND LATERAL 2 VW Date/Time of Exam: 06/22/2025 11:26 AM Reason For Exam: See Diagnosis. Diagnosis: Pleuritic chest pain. Prior: 04/16/2023 Findings: The cardiomediastinal silhouette is normal. Increased rounded appearance of the right hilum, which may be secondary to prominence of the pulmonary vasculature or lymphadenopathy. No focal consolidation, pleural effusion or pneumothorax. No acute osseous abnormality. IMPRESSION: Increased rounded appearance of the right hilum which may be significant prominence of the pulmonary vasculature without lymphadenopathy. Consider CT of the chest with contrast for further evaluation. No focal airspace disease. Narrative Procedure Note Stan Khalil DO - 06/22/2025 IMPRESSION: See below. Exam: XR CHEST PA AND LATERAL 2 VW Date/Time of Exam: 06/22/2025 11:26 AM Reason For Exam: See Diagnosis. Diagnosis: Pleuritic chest pain. Prior: 04/16/2023 Findings: The cardiomediastinal silhouette is normal. Increased rounded appearance of the right hilum, which may be secondary to prominence of the pulmonary vasculature or lymphadenopathy. No focal consolidation, pleural effusion or pneumothorax. No acute osseous abnormality. IMPRESSION: Increased rounded appearance of the right hilum which may be significant prominence of the pulmonary vasculature without lymphadenopathy. Consider CT of the chest with contrast for further evaluation. No focal airspace disease. Jaimie Caro SOAKER HIDES DIAGNOSTIC IMAGING ORDERA BLES Final Result documented in this encounter Visit Diagnoses Diagnosis Pleuritic chest pain Painful respiration documented in this encounter Additional Health Concerns Assessment Noted Time PHQ-9 Depression Total Score: 1 03/24/20 25 2:59 PM CDT documented as of this encounter Care Teams Beam Builder Helper Relationship Specialty Start Date End Date Chun Curiel MD [facility] [address] [address] PCP - General Family Practice 02/25/24 documented as of this encounter
--- OUTSIDE RECORDS SUMMARY | 2025-06-22 11:40 | XMS_ITS | Encounter Summary ---
Author Organization [facility] Address [address] [place] [address] Care Team Providers Care Denture Packer Name Role Phone Chun Curiel MD Primary Care Provider [phone] Reason for Visit * Reason Comments Shoulder Pain Right, patient repor ts she had her Gallbladder out 05-30-2025, patient also reports she had a pimple like thing on her right breast and tried to pop it, she reports she doesn't know If it is an infection or gas from having her Gallbladder out. Encounter Details Date Type Department Care Team (Latest Contact Info) Description 06/22/2025 11:40 AM CDT Office Visit [facility] [place] [place] [address] [place] [phone] Jaimie Caro, [facility] [address] [phone] Pleuritic chest pain (Primary Dx); Status post cholecystectomy Social History Tobacco Use Types Packs/Day Years [...] on file documented as of this encounter Last Filed Vital Signs Vital Sign Reading Time Taken Comments Blood Pressure 120/72 06/22/2025 11:03 AM CDT Pulse 87 06/22/2025 11:03 AM CDT Temperature 36.1 C (97 F) 06/22/2025 11:03 AM CDT Respiratory Rate 18 06/22/2025 11:03 AM CDT Oxygen Saturation 96% 06/22/2025 11:03 AM CDT Inhaled Oxygen Concentration - - Weight 90.5 kg (199 lb 9.6 oz) 06/22/2025 11:03 AM CDT Height 160 cm (5' 3 ) 06/22/2025 11:03 AM CDT Body Mass Index 35.36 06/22/2025 11:03 AM CDT documented in this encounter Progress Notes * Jaimie Caro, MACHINING TECHNICIAN - 06/22/2025 12:44 PM CDT Images from the original note were not included. HISTORY OF PRESENT ILLNESS Shasha Wesley, a 59 y.o. female presents with a Chief Complaint of Shoulder Pain (Right, patient reports she had her Gallbladder out 05-30-2025, patient also reports she had a pimple like thing on her right breast and tried to pop it, she reports she doesn't know If it is an infection or gas from having her Gallbladder out. /) Chest Pain Patient complains of right sided chest pain. Onset was 3 days ago, with worsening course since thattime. The patient admits to chest discomfort that is aching, intermittent, occurring with increasing frequency, worse when taking a deep breath, with radiation to right sternal area, right arm, rightshoulder, rightupper arm, and upper back, rated as a scale of 7/10 in intensity that is sharp, pressure, substernal, costochondral in nature. Associated symptoms are no new cardiac symptoms. Aggravating factors are deep inspiration or palpation of chest. Alleviating factors are: NSAIDs. Patient's cardiac risk factors are obesity, post-menopausal. Patient's risk factors for DVT/PE: age over 60 years, obesity (BMI>30), and cholecystectomy x1 month ago. REVIEW OF SYSTEMS Review of Systems All other systems reviewed and are negative. Objective PHYSICAL EXAM BP 120/72 Pulse 87 Temp 97 ??F (36.1 ??C) (Temporal) Resp 18 Ht 5' 3 (1.6 m) Wt 90.5 kg (199 lb 9.6 oz) LMP (LMP Unknown) SpO2 96% BMI 35.36 kg/m?? Physical Exam Vitals reviewed. Constitutional: Appearance: Normal appearance. She is obese. HENT: Mouth/Throat: Mouth: Mucous membranes are moist. Eyes: Pupils: Pupils are equal, round, and reactive to light. Cardiovascular: Rate and Rhythm: Normal rate and regular rhythm. Chest: Chest wall: Tenderness present. Abdominal: Palpations: Abdomen is soft. Musculoskeletal: General: Tenderness present. Skin: General: Skin is warm and dry. Capillary Refill: Capillary refill takes less than 2 seconds. Comments: Lap judy incisions intact, in end stages of healing process with no sign of infection Neurological: General: No focal deficit present. Mental Status: She is alert and oriented to person, place, and time. Psychiatric: Mood and Affect: Mood normal. Behavior: Behavior normal. ASSESSMENT and PLAN: 1. Pleuritic chest pain (Primary) 2. Status post cholecystectomy Pleuritic chest pain versus S/P cholecystectomy gas pain verus post surgical pneumonia versus IA/angina versus musculoskeletal pain. Questionable EKG- reviewed with Dr. AREVALO. Given patient reported symptoms and presentation, will trial a GI cocktail- if ineffective, needs to go to ER. Patient declines ER at this time. She reports ifpain worsens, she will call an ambulance. Strict ER precautions. - EKG 12-LEAD - XR CHEST PA AND LATERAL 2 VW; Future - CBC WITH DIFFERENTIAL; Future - COMPREHENSIVE METABOLIC PANEL; Future - TROPONIN; Future - CBC WITH DIFFERENTIAL - COMPREHENSIVE METABOLIC PANEL - TROPONIN - PHENobarbital/belladonna/lidocaine 2%/gaviscon (GI COCKTAIL) oral solution 45 mL documented in this encounter Plan of Treatment Upcoming Encounters Date Type Department Care Team (Late st Contact Info) Description 03/29/2026 10:20 AM CDT Office Visit [facility] Medicine [place] [id number] [phone] Chun Curiel MD [address] [place] [phone] Scheduled Orders Name Type Priority Associated Diagnoses Orde r Schedule EKG 12-LEAD ECG Routine Pleuritic chest pain Ordered: 06/22/2025 documented as of this encounter Procedures Procedure Name Priority Date/Time Associated Diagnosis Comments CBC WITH DIFFERENTIAL Routine 06/22/2025 11:51 AM CDT Pleuritic chest pain TROPONIN Routine 06/22/2025 11:51 AM CDT Pleuritic chest pain COMPREHENSIVE METABOLIC PANEL Routine 06/22/2025 11:51 AM CDT Pleuritic chest pain documented in this encounter Results * TROPONIN (06/22/2025 11:51 AM CDT) Pathologist [facility] TROPONIN I <3 < OR = 47 ng/L [facility] Comment: In accord with published recommendations, serial testing of troponin I at intervals of 2 to 4 hours for up to 12 to 24 hours is suggested in order to corroborate a single troponin I result. An elevated troponin alone is not sufficient to make the diagnosis of IA. Test Performed at: [facility] [id number] [place] [address] Damon Elizabeth MD Blood 06/22/2025 11:5 1 AM CDT 06/22/2025 11:51 [address] [facility] CHEMISTRY ORDERABLES Dot [facility]orman Result [facility] [phone] [email or web address] [address] [place] [address] * (ABNORMAL) COMPREHENSIVE METABOLIC PANEL (06/22/2025 11:51 AM CDT) Pathologist [facility] GLUCOSE 91 65 - 99 mg/dL [facility] Comment: Fasting reference interval BUN 19 7 - 25 mg/dL [facility] CREATININE 1.11(H) 0.50 - 1.05 mg/dL [facility] GFR 57(L) > OR = 60 mL/min/1.7 3m2 [facility] BUN/CREAT RATIO 17 6 - 22 (calc) [facility] SODIUM 138 135 - 146 mmol/L [facility] POTASSIUM 4.2 3.5 - 5.3 mmol/L [facility] CHLORIDE 107 98 - 110 mmol/L [facility] CO2 22 20 - 32 mmol/L [facility] CALCIUM 9.1 8.6 - 10.4 mg/dL [facility] TOTAL PROTEIN 6.8 6.1 - 8.1 g/dL [facility] ALBUMIN 3.8 3.6 - 5.1 g/dL [facility] GLOBULIN 3.0 1.9 - 3.7 g/dL (calc) [facility] ALBUMIN/GLOBULIN RATIO 1.3 1.0 - 2.5 (calc) [facility] BILIRUBIN TOTAL 0.4 0.2 - 1.2 mg/dL [facility] ALKALINE PHOSPHATASE 96 37 - 153 U/L [facility] AST 17 10 - 35 U/L [facility] ALT 11 6 - 29 U/L [facility] Comment: Test Performed at: [facility] [address] Damon Elizabeth MD Blood 06/22/2025 11:5 1 AM CDT 06/22/2025 11:51 AM CDT us Jaimie Caro MACHINING TECHNICIAN CHEMISTRY ORDERABLES Dot l Result [facility] [phone] [facility] [address] * (ABNORMAL) CBC WITH DIFFERENTIAL (06/22/2025 11:51 AM CDT) WBC 8.7 3.8 - 10.8 Thousand/u L [facility] RBC 5.30(H) 3.80 - 5.10 Million/uL [facility] HEMOGLOBIN 12.9 11.7 - 15.5 g/dL [facility] HEMATOCRIT 41.8 35.0 - 45.0 % [facility] MCV 78.9(L) 80.0 - 100.0 fL [facility] MCH 24.3(L) 27.0 - 33.0 pg [facility] MCHC 30.9(L) 32.0 - 36.0 g/dL [facility] Comment: For adults, a slight decrease in the calculated MCHC value (in the range of 30 to 32 g/dL) is most likely not clinically significant; however, it should be interpreted with caution in correlation with other red cell parameters and the patient's clinical condition. RDW 15.1(H) 11.0 - 15.0 % [facility] PLATELETS 375 140 - 400 Thousand/u L [facility] MPV 9.7 7.5 - 12.5 fL [facility] NEUTROPHIL ABSOLUTE 4,359 1,500 - 7,800 cells/uL [facility] LYMPHOCYTE ABSOLUTE 3,332 850 - 3,900 cells/uL [facility] MONOCYTE ABSOLUTE 696 200 - 950 cells/uL [facility] EOSINOPHIL ABSOLUTE 252 15 - 500 cells/uL [facility] BASOPHILS ABSOLUTE 61 0 - 200 cells/uL [facility] NEUTROPHIL 50.1 % [facility] LYMPHOCYTES 38.3 % [facility] MONOCYTE 8.0 % [facility] EOSINOPHILS 2.9 % [facility] BASOPHILS 0.7 % [facility] Comment: Test Performed at: [facility] [address] [place] [address] Damon Elizabeth MD Blood 06/22/2025 11:5 1 AM CDT 06/22/2025 11:51 AM CDT Jaimie WINTERS HEMATOLOGY ORDERABLES Fin al Result [facility] [phone] [facility] [address] [address] [place] [address] * XR CHEST PA AND LATERAL 2 [...] evaluation. No focal airspace disease. Jaimie Caro MACHINING TECHNICIAN DIAGNOSTIC IMAGING ORDERA BLES Final Result documented in this encounter Visit Diagnoses Diagnosis Pleuritic chest pain- Primary Painful respiration Status post cholecystectomy Other acquired absence of organ Pleuritic chest pain Painful respiration documented in this encounter Additional Health Concerns Assessment Noted Time PHQ-9 Depression Total Score: 1 03/24/20 25 2:59 PM CDT documented as of this encounter Care Teams Denture Packer Relationship Specialty Start Date End Date Chun Curiel MD [address] [place] [address] [place] [phone] PCP - General Family Practice 02/25/24 documented as of this encounter
--- NOTE | 2025-06-22 14:52 | ECG_ITS ---
[facility] Test Date: 2025-06-22 Pat Name: Shasha Wesley Department: Room: Gender: Female Engraving Press Operator: : 1965 Requested By: Gergor Oakes Order Number: [id number] Bishop MD: Vikas Aguilar M.D. Measurements Intervals [place] Rate: 54 P: 43 IA: 142 QRS: 32 QRSD: 82 T: 42 QT: 396 QTc: 376 Interpretive Statements SINUS BRADYCARDIA LOW QRS VOLTAGE IN PRECORDIAL LEADS [QRS DEFLECTION < 1.0 mV IN CHEST LEADS] No previous ECG available for comparison Electronically Signed On 06-23-2025 10:23:55 CDT by Vikas Aguilar M.D. [email or web address] [id number]
[2025-06-22 14:55] VITALS: BP 121/82; PULSE 57; RESP 16; TEMP 36.3; O2SAT 99; BMI 35.2
[2025-06-22 15:25] LABS: Hematocrit 41.1 % (36-47); Hemoglobin 12.50 g/dL (11.27-16.99); Mean Corpuscular HGB Conc 30.4 g/dL (30-55); Mean Corpuscular Hemoglobin 23.6 pg (27-33); Mean Corpuscular Volume 77.7 fl (85-98); Nucleated Red Blood Cells % 0 %; Platelet Count 370 10^3/cmm (157-399); Red Blood Count 5.29 10^6/uL (3.85-5.65); White Blood Count 8.07 10^3/uL (3.29-11.43)
[2025-06-22 15:43] LABS: Alanine Aminotransferase 10 U/L (0-33); Albumin Level 3.8 g/dL (3.5-5.2); Alkaline Phosphatase 117 U/L (35-105); Anion Gap 14.4 (5-19); Aspartate Amino Transferase 15 U/L (0-32); Blood Urea Nitrogen 17 mg/dL (8-23); Calcium 9.2 mg/dL (8.5-10.5); Carbon Dioxide 27 mmol/L (22-29); Chloride 107 mmol/L (98-107); Creatinine Clr Calc Pharmacy 57.9940; Globulin 3.5 g/dL (1.3-4.6); Glucose 94 mg/dL (65-115); Osmolality Calculated 299 mOsm/kg (285-295); Potassium 4.4 mmol/L (3.5-5.1); Sodium 144 mmol/L (136-145); Total Protein 7.3 g/dL (6.6-8.7)
--- NOTE | 2025-06-22 15:45 | ECG_ITS ---
[facility] Test Date: 2025-06-22 Pat Name: Shasha Wesley Department: Room: Gender: Female Validation Software Facilitator: : 1965 Requested By: Gregor Oakes Order Number: [id number] Bishop MD: Vikas Aguilar M.D. Measurements Intervals [place] Rate: 64 P: 44 PA: 152 QRS: 48 QRSD: 90 T: 32 QT: 405 QTc: 421 Interpretive Statements SINUS RHYTHM Compared to ECG 06/22/2025 14:52:18 Sinus bradycardia no longer present Electronically Signed On 06-23-2025 10:23:44 CDT by Vikas Aguilar M.D. [email or web address]
--- NOTE | 2025-06-22 15:45 | CTR_ITS ---
PROCEDURE INFORMATION: Exam: CTA Chest With Contrast Exam date and time: 06/22/2025 3:53 PM Age: 59 years old Clinical indication: Shortness of breath; Prior surgery; Surgery date: <1 month; Surgery type: 3 weeks ago; Additional info: SOB, RT sided chest pain, gb removed 3 weeks ago TECHNIQUE: Imaging protocol: Computed tomographic angiography of the chest with contrast. Exam focused on the arteries. 3D rendering (Not supervised by radiologist): MIP and/or 3D reconstructed images were created by the technologist. Radiation optimization: All CT scans at this facility use at least one of these dose optimization techniques: automated exposure control; mA and/or kV adjustment per patient size (includes targeted exams where dose is matched to clinical indication); or iterative reconstruction. Contrast material: OMNI 350; Contrast volume: 66 ml; Contrast route: INTRAVENOUS (IV); COMPARISON: CT abdomen pelvis w con* [id number] 05/17/2025 2:29 PM RADIATION DOSE METRICS: Total DLP (mGy-cm): 393.92 FINDINGS: Pulmonary arteries: Normal. No pulmonary emboli. Aorta: Unremarkable. No aortic aneurysm. No aortic dissection. Lungs: Unremarkable. No consolidation. No masses. Pleural spaces: Unremarkable. No pneumothorax. No pleural effusion. Heart: Unremarkable. No cardiomegaly. No pericardial effusion. Lymph nodes: Unremarkable. No enlarged lymph nodes. Bones/joints: Unremarkable. No acute fracture. Soft tissues: Unremarkable. CT/CT angio chest PE protcl [id number] IMPRESSION: No acute findings.
--- NOTE | 2025-06-22 15:47 | W.ED.CHESTPA ---
HPI - Chest Pain General: Chief Complaint: Chest Pain Stated Complaint: pain in lungs Time Seen by Provider: 06/22/25 15:43 Source: patient Mode of arrival: ambulatory Limitations: no limitations History of Present Illness: 59-year-old female states been having right-sided chest pain for the last 2 days. States pains been a sharp pain she had some shortness of breath with that as well states she was at [facility] had an x-ray and was told to come here to get a stat CT scan of her chest. She is unsure what they saw they told her possible pneumonia she denies any vomiting or diarrhea rates pain 8 out of 10 currently Associated symptoms: Reports dyspnea; Deny abdominal pain, fever(s), nausea or vomiting Related Data Home Medications ?Medication ?Instructions ?Recorded ?Confirmed amitriptyline 10 mg tablet 10 mg PO DAILY 07/14/22 06/14/25 omega 3-fvn-pdk-fish oil 100 2 cap PO DAILY 07/14/22 06/14/25 mg-160 mg-1,000 mg capsule (Fish Oil) ibuprofen 800 mg tablet 800 mg PO Q6H PRN Pain 05/30/25 06/14/25 Previous Rx's ?Medication ?Instructions ?Recorded azathioprine 50 mg tablet 50 mg PO BID #60 tabs 04/05/25 pilocarpine HCl 5 mg tablet 5 mg PO TID #90 tabs 04/05/25 ondansetron 4 mg disintegrating 4 mg PO Q6H PRN nausea and 05/17/25 tablet vomiting #14 tabs naproxen 500 mg tablet (Naprosyn) 500 mg PO BID PRN pain #20 tabs 06/22/25 Allergies Allergy/AdvReac Type Severity Reaction Status Date / Time morphine Allergy Severe ALGY-Anaphy Verified 06/22/25 15:00 laxis nirmatrelvir (From Paxlovid) Allergy Severe ALGY-Anaphy Verified 06/22/25 15:00 laxis ritonavir (From Paxlovid) Allergy Severe ALGY-Anaphy Verified 06/22/25 15:00 laxis adalimumab (From Humira) Allergy Intermediate adv-rash Verified 06/22/25 15:00 pregabalin (From Lyrica) Allergy Intermediate migraine Verified 06/22/25 15:00 meloxicam Allergy ADR-Headach Verified 06/22/25 15:00 e Opioids - Morphine Analogues Allergy Unknown Verified 06/22/25 15:00 Sulfa (Sulfonamide Allergy Unknown Verified 06/22/25 15:00 Antibiotics) opioids Allergy Unknown Uncoded 06/22/25 15:00 steroids Allergy Unknown Uncoded 06/22/25 15:00 Review of Systems Const: Denies: fever(s), chills, body aches or change in appetite ENMT: Denies: throat pain or dental pain Card: Reports: chest pain Resp: Reports: dyspnea GI: Denies: abdominal pain, nausea, vomiting or diarrhea : Denies: dysuria Musc: Denies: neck pain or back pain Skin/Breast: Denies: rash Neuro: Denies: headache(s) PFSH ED PFSH: Medical History Seropositive rheumatoid arthritis of multiple sites Immunization counseling High risk medication use Primary Sjogren's syndrome Rheumatoid arthritis Surgical History Hx laparoscopic cholecystectomy History of tubal ligation Family History Other Cancer Diabetes Heart disease Hypertension Lupus (systemic lupus erythematosus) Migraines Osteoporosis Rheumatoid arthritis Social History Smoking and tobacco/nicotine status: former use of tobacco/nicotine Female Reproductive History: Spontaneous abortions: No Physical Exam Const: COMMON NORMALS: no acute distress, patient oriented x3 and healthy appearing HENMT: COMMON NORMALS: normocephalic and atraumatic HEAD & SCALP: normocephalic and atraumatic Neck/C-Spine: COMMON NORMALS: full ROM and supple Chest: COMMONS NORMALS: normal inspection of the chest Resp: COMMON NORMALS: normal respiratory effort, No retractions, No use of accessory muscles and clear to auscultation bilaterally AUSCULTATION: clear to auscultation bilaterally Cardio: COMMON NORMALS: regular rate, regular rhythm and No murmurs present (Cardio) RATE: regular rate RHYTHM: regular rhythm Extremity: COMMON NORMALS: normal to inspection and full ROM Neuro: COMMON NORMALS: patient oriented x3, moves all extremities and no focal motor deficits Psych: COMMON NORMALS: mental status grossly normal, Normal thought process present and cooperative THOUGHT PROCESS: Normal thought process present Skin: COMMON NORMALS: no rashes or lesions noted and no wounds GENERAL SKIN EXAM: no rashes or lesions noted Course Vital Signs: Vital signs: Vital Signs Temperature 97.4 F L 06/22/25 14:55 Pulse Rate 61 06/22/25 17:13 Respiratory Rate 16 06/22/25 17:13 Blood Pressure 121/52 06/22/25 17:13 Pulse Oximetry 100 06/22/25 17:13 MDM - Chest Pain Medical Decision Making Patient presents for chest pain is atypical in nature has been going for days her CTA is negative troponin is negative no signs of ACS she stable for discharge she is to follow-up with PCP return if worsening she understands agrees to plan Medical Records I reviewed the patient's medical records. Lab Data I reviewed the patient's lab results. 06/22/25 15:18 06/22/25 15:18 Radiology Impressions Chest CTA 06/22/25 15:45 IMPRESSION: No acute findings. Laboratory Results WBC 8.07 10^3/uL (3.29-11.43) 06/22/25 15:18 RBC 5.29 10^6/uL (3.85-5.65) 06/22/25 15:18 Hgb 12.50 g/dL (11.27-16.99) 06/22/25 15:18 Hct 41.1 % (36-47) 06/22/25 15:18 MCV 77.7 fl (85-98) L 06/22/25 15:18 MCH 23.6 pg (27-33) L 06/22/25 15:18 MCHC 30.4 g/dL (30-55) 06/22/25 15:18 RDW 16.2 % (12.1-15.1) H 06/22/25 15:18 Plt Count 370 10^3/cmm (157-399) 06/22/25 15:18 MPV 9.3 fL (7.4-10.4) 06/22/25 15:18 Neut % (Auto) 44.8 % 06/22/25 15:18 Lymph % (Auto) 44.5 % 06/22/25 15:18 Carson % (Auto) 7.1 % 06/22/25 15:18 Eos % (Auto) 3.0 % 06/22/25 15:18 Baso % (Auto) 0.5 % 06/22/25 15:18 Neut # (Auto) 3.62 10^3/uL (1.8-7.7) 06/22/25 15:18 Lymph # (Auto) 3.6 10^3/uL (0.8-4.8) 06/22/25 15:18 Carson # (Auto) 0.6 10^3/uL (0.2-0.9) 06/22/25 15:18 Eos # (Auto) 0.2 10^3/uL (0.0-0.8) 06/22/25 15:18 Baso # (Auto) 0.0 10^3/uL (0.0-0.1) 06/22/25 15:18 Nucleated RBC % (auto) 0 % 06/22/25 15:18 Nucleated RBCs # 0.0 /100WBC 06/22/25 15:18 Sodium 144 mmol/L (136-145) 06/22/25 15:18 Potassium 4.4 mmol/L (3.5-5.1) 06/22/25 15:18 Chloride 107 mmol/L (98-107) 06/22/25 15:18 Carbon Dioxide 27 mmol/L (22-29) 06/22/25 15:18 Anion Gap 14.4 (5-19) 06/22/25 15:18 BUN 17 mg/dL (8-23) 06/22/25 15:18 Creatinine 1.1 mg/dL (0.5-0.9) H 06/22/25 15:18 GFR Calculation 50.7 mL/min (90-130) L 06/22/25 15:18 Glucose 94 mg/dL (65-115) 06/22/25 15:18 Calculated Osmolality 299 mOsm/kg (285-295) H 06/22/25 15:18 Calcium 9.2 mg/dL (8.5-10.5) 06/22/25 15:18 Total Bilirubin 0.3 mg/dL (0.15-1.2) 06/22/25 15:18 AST 15 U/L (0-32) 06/22/25 15:18 ALT 10 U/L (0-33) 06/22/25 15:18 Alkaline Phosphatase 117 U/L (35-105) H 06/22/25 15:18 Troponin T Baseline < 6 ng/L (0-10) 06/22/25 15:18 Total Protein 7.3 g/dL (6.6-8.7) 06/22/25 15:18 Albumin 3.8 g/dL (3.5-5.2) 06/22/25 15:18 Globulin 3.5 g/dL (1.3-4.6) 06/22/25 15:18 All radiology interpretation(s) finalized by discharge Discharge Plan Discharge Patient Disposition: Home Clinical Impression: Chest pain Condition: Stable Prescriptions: New naproxen [Naprosyn] 500 mg tablet 500 mg PO BID PRN (Reason: pain) Qty: 20 0RF No Action pilocarpine HCl 5 mg tablet 5 mg PO TID Qty: 90 5RF azathioprine 50 mg tablet 50 mg PO BID Qty: 60 5RF amitriptyline 10 mg tablet 10 mg PO DAILY Fish Oil 100-160-1,000 mg capsule 2 cap PO DAILY ibuprofen 800 mg Tablet 800 mg PO Q6H PRN (Reason: Pain) ondansetron 4 mg tablet,disintegrating 4 mg PO Q6H PRN (Reason: nausea and vomiting) Qty: 14 0RF Discharge Orders: Discharge ED (Routine); Ordered 06/22/25 Ordered By: Gregor Oakes Referrals: Ketan Govea [Primary Care Provider, Family Practice] Discharge Diet: Advance as tolerated Discharge Activity: Resume usual activity Patient Instructions: Chest Pain (ED) Print Language: American Coding Level of Care Code ED Road Engineer for Abigail De Paz
[2025-06-22] MEDS: iohexol 350 mg/mL 500 mL Btl (per mL) IV (15:57)
[2025-06-22 16:03] VITALS: BP 117/40; O2SAT 98
[2025-06-22 16:11] LABS: Troponin(5th) Baseline < 6 ng/L (0-10)
[2025-06-22 17:01] VITALS: BP 121/52; O2SAT 97
[2025-06-22 17:13] VITALS: BP 121/52; PULSE 61; RESP 16; O2SAT 100
--- OUTSIDE RECORDS SUMMARY | 2025-06-24 02:44 | XMS_ITS | Patient Health Record ---
Author Organization [facility] Address [address] [facility] [address] [place] [address] Care Team Providers Care Fingerer Name Role Phone NOT IN COMPUTER, NOT IN COMPUTER Primary Care Pr ovider Unavailable Xochitl Hernandezaline Unavailable [phone] Allergies Allergen (clinical drug ingredient) Drug/Non Drug Allergy documented on EMR Reaction Allergy Type Onset Date Status Lyrica, gabapentin (uncoded) Unknown Allergy Active Plaquenil, Sulfasalazine (uncoded) Unknown Allergy Active Substance with sulfonamide structure and antibacterial mechanism of action (substance) Sulfa (uncoded) Unknown Allergy Active Steroids Steroids (uncoded) Unknown Allergy A ctive All pain meds (uncoded) Unknown Allergy Active Reason For Referral [...] Active Omeprazole 20mg po daily Activ e [place] 3 Active Vitamin D3 2000Iu po daily [...] biological children not worked since 2013, 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, 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 denies etoh, drug use , 3 biological children not worked since 2013, 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, 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 denies etoh, drug use Problems Problem Type SNOMED Code ICD Code Onset Dates Problem Status W/U Status Risk Notes Problem Fibromyalgia (530527700) Fibromyalgia (M79.7) Active confirmed Problem Rheumatoid arthritis (67627528) seropositive RA (M05.79) Active confirmed Problem Serology positive (170808678) abnormal serology (R76.8) Active confirmed Problem Long-term current use of drug therapy (723348291) skilled nursing medication use (Z79.899) Active confirmed Problem Sjogren's syndrome (17491509) Sjogren's syndrome (M35.0) Active confirmed Plan Of Treatment No Information Insurance Providers Payer Name Payer Address Payer Phone Subscriber Number Group Number Insured Name Patient Relationship to Insured Coverage Start Date Coverage End Date [employer] [address] [address] [place] [id number] Shasha Rush Self - patient is the insured Medical (General) History Medical History History ICD Code RA, Sjogren's syndrome: RF 2 3, neg CCP, long history of sx, formal dx 2004 (Dr. Roberto Dupont, [place], 2 visits only), no rheum f/u until 2019 (Dr. Roberto Aguero, [place], [place]); allergy to HCQ (face rash, throat closing); start MTX PO in 2019, tolerating well Fibromyalgia 04/2020: SSA >8, neg JOHANNA, SSB, Sm, [facility], d sDNA, CCP, normal SPEP 07/2020: neg Q Gold, RF 23 Surgical History Surgery Date(Month/Year) Tubal ligation
--- OUTSIDE RECORDS SUMMARY | 2025-06-24 02:44 | XMS_ITS | Encounter Summary ---
Author Organization [facility] Address [address] [place] [address] Care Team Providers Care Digital Media Sales Consultant Name Role Phone Chun Curiel MD Primary Care Provider [phone] Reason for Visit * Reason Comments Clinical Consult Before Scheduling Encounter Details Date Type Department Care Team (Late st Contact Info) Description 06/22/2025 Nurse Triage [facility] Medicine [address] [phone] Chun Curiel MD [address] [place] [phone] Social History Tobacco Use Types Packs/Day Years [...] as of this encounter Miscellaneous Notes * Telephone Encounter - Anayeli Vaca RN - 06/22/2025 9:31 AM CDT Reason for Disposition MODERATE pain (e.g., interferes with normal activities) and present > 3 days Protocols used: Shoulder Pain-A-OH Patient reports having gallbladder removed on the . She states that she is having shoulder pain and pain that goes through her breast. She did report popping what she thought was a pimple on her breast and wanted to be evaluated. Appointment arranged. See Within 3 Days in Office * Telephone Encounter - Wil Lui Bee - 06/22/2025 9:29 AM CDT Copied from [facility] #[id number]. Topic: Symptomatic Care >> Jun 22, 2025 9:26 AM Wil Stearns wrote: Has this patient seen any provider (current or former) at the requested clinic in the past? Yes, Select the appropriate age range and symptom Patient has symptoms and is seeking care. Caller Name: Shasha Wesley Callback Number: [phone] Call Notes: Pain on right side under breast and around to shoulder Age Range/Symptom: Adult 18+ - Pain, present for less than 3 days AND 8, 9 or 10 severity on a 0-10scale (10 being worst) Is there an encounter open? No Transferred to [facility] Wilbert answered call. documented in this encounter Plan of Treatment Upcoming Encounters Date Type Department Care Team (Late st Contact Info) Description 03/29/2026 10:20 AM CDT Office Visit [facility] Medicine [address] [phone] Chun Curiel MD [address] [place] [phone] documented as of this encounter Visit Diagnoses Not on filedocumented in this encounter Additional Health Concerns Assessment Noted Time PHQ-9 Depression Total Score: 1 03/24/20 25 2:59 PM CDT documented as of this encounter Care Teams Digital Media Sales Consultant Relationship Specialty Start Date End Date Chun Curiel MD [address] [phone] PCP - General Family Practice 02/25/24 documented as of this encounter
--- OUTSIDE RECORDS SUMMARY | 2025-06-24 02:44 | XMS_ITS | Encounter Summary ---
Author Organization [facility] Address [address] [place] [address] Care Team Providers Care Tube Laser Operator Name Role Phone Chun Curiel MD Primary Care Provider [phone] Reason for Visit * Reason Onset Date Comments Results 06/22/2025 Patient Communication Needs Orders Written Encounter Details Date Type Department Care Team (Late st Contact Info) Description 06/22/2025 Results Follow-Up [facility] [address] [place] [phone] Jaimie Caro, [facility] [address] [phone] XR CHEST PA AND LATERAL 2 VW Social History Tobacco Use Types Packs/Day Years [...] encounter Miscellaneous Notes * Telephone Encounter - Tammi Tsang - 06/23/2025 10:30 AM CDT Copied from [facility] #[id number]. Topic: CPA Information Request - Order or Referral Request >> Jun 23, 2025 10:28 AM Tammi Hines wrote: Caller Name: Shasha Wesley Patient/Caregiver Callback Number: [phone] (mobile) Call Notes: Patient wants you to know her CT scan came back normal. She went to [facility]. They redid her blood and EKG. All blood work came back normal. She stated she was there 6 hours and has bruises all over from all the poking. She is still in pain but it has lightened up a lot. Caller is requesting: New Non Lab Order Has the patient been seen for this issue? Yes Order: CT scan Reason for Request: yesterday 06/22 Preferred Facility[place]Location[place] [facility] * Telephone Encounter - Tamiko Mendoza - 06/22/2025 2:20 PM CDT Copied from [facility] #[id number]. Topic: CPA Information Request >> Jun 22, 2025 2:19 PM Tamiko Powell wrote: Caller is returning phone call from clinic. Caller Name: Shasha Wesley Patient/Caregiver Callback Number: Telephone Information: Clinic Left Note In Chart Is there a note from the clinic requesting the caller be transferred when they call back? No Are the credentials of the caregiver who called the patient group program manager? Yes Call Notes: Communicated information that is documented in the note. Caller does not want a call back from clinic. * Telephone Encounter - Felisha Joe LPN - 06/22/2025 2:04 PM CDT 06/22/2025 2:04 PM Called and notified patient of results. Voiced understanding. She states she will head to the ER. Felisha WEST * Telephone Encounter - Felisha Joe LPN - 06/22/2025 2:03 PM CDT ----- Message from Jaimie Caro sent at 06/22/2025 12:43 PM CDT ----- Given her symptoms, and x-ray report, I would really like her to go through ER to get a STAT chest CT as radiology recommended. IMPRESSION: Increased rounded appearance of the right hilum which may be significant prominence of the pulmonary vasculature without lymphadenopathy. Consider CT of the chest with contrast for further evaluation. No focal airspace disease. ----- Message ----- From: Mario Reynaga Incoming Radiology Results Sent: 06/22/2025 12:38 PM CDT To: SINGH Belle * Result Encounter Note - Jaimie Caro FNP - 06/22/2025 12:43 PM CDT Given her symptoms, and x-ray report, I would really like her to go through ER to get a STAT chest CT as radiology recommended. IMPRESSION: Increased rounded appearance of the right hilum which may be significant prominence of the pulmonary vasculature without lymphadenopathy. Consider CT of the chest with contrast for further evaluation. No focal airspace disease. documented in this encounter Plan of Treatment Upcoming Encounters Date Type Department Care Team (Late st Contact Info) Description 03/29/2026 10:20 AM CDT Office Visit [facility] Medicine [address] [phone] Chun Curiel MD [address] [place] [phone] documented as of this encounter Visit Diagnoses Not on filedocumented in this encounter Additional Health Concerns Assessment Noted Time PHQ-9 Depression Total Score: 1 03/24/20 25 2:59 PM CDT documented as of this encounter Care Teams Tube Laser Operator Relationship Specialty Start Date End Date Chun Curiel MD [address] [place] [phone] PCP - General Family Practice 02/25/24 documented as of this encounter
--- OUTSIDE RECORDS SUMMARY | 2025-06-24 02:44 | XMS_ITS | Encounter Summary ---
Author Organization [facility] Address [address] [place] [address] Care Team Providers Care Veneer Clipper Name Role Phone Chun Curiel MD Primary Care Provider [phone] Reason for Visit * Reason Comments Patient Communication Encounter Details Date Type Department Care Team (Late st Contact Info) Description 06/07/[address] [phone] Chun Curiel MD [address] [place] [phone] Patient Communication Social History Tobacco Use Types Packs/Day Years [...] encounter Miscellaneous Notes * Telephone Encounter - Britta Hernandez LPN - 06/07/2025 12:25 PM CDT 06/07/2025 12:25 PM Returned call and spoke with patient. Discussed that she had surgery on 05/30 and is having bloating and pain around the belly button at times and was given miralax from the surgeons office but it isn't really helping and wanted to know if she would take an OTC medication. Encouraged patient to contact surgeons office and inquire. Voiced understanding. Britta WEST * Telephone Encounter - Nolvia Ford - 06/07/2025 10:51 AM CDT Copied from [facility] #[id number]. Topic: CPA Information Request >> Jun 07, 2025 10:49 AM Nolvia Hines wrote: Caller is returning phone call from clinic. Caller Name: PT Patient/Caregiver Callback Number: Telephone Information: Clinic Did Not Leave Note In Chart Call Notes: Patient/Caller returning call, no note documented with instructions from clinic. PT called in stating she still has a a lot of air in her belly from the gallbladder surgery and pain around her belly button , she is asking for a call back documented in this encounter Plan of Treatment Upcoming Encounters Date Type Department Care Team (Late st Contact Info) Description 03/29/2026 10:20 AM CDT Office Visit [facility] Family Medicine [place] [address] [phone] Chun Curiel MD [address] [place] [phone] documented as of this encounter Visit Diagnoses Not on filedocumented in this encounter Additional Health Concerns Assessment Noted Time PHQ-9 Depression Total Score: 1 03/24/20 25 2:59 PM CDT documented as of this encounter Care Teams Veneer Clipper Relationship Specialty Start Date End Date Chun Curiel MD [address] [phone] PCP - General Family Practice 02/25/24 documented as of this encounter
--- OUTSIDE RECORDS SUMMARY | 2025-06-24 02:44 | XMS_ITS | Encounter Summary ---
Author Organization [facility] Address [address] [place] [address] Care Team Providers Care Extermination Inspector Name Role Phone Chun Curiel MD Primary Care Provider [phone] Encounter Details Date Type Department Care Team (Late st Contact Info) Description 06/14/2025 External Device Data [facility] ABSTRACTION Provider, Abstract [...] Description 03/29/2026 10:20 AM CDT Office Visit [facility] Medicine [address] [phone] Chun Curiel MD [address] [place] [phone] documented as of this encounter Visit Diagnoses Not on filedocumented in this encounter Additional Health Concerns Assessment Noted Time PHQ-9 Depression Total Score: 1 03/24/20 2:59 PM CDT documented as of this encounter Care Teams Extermination Inspector Relationship Specialty Start Date End Date Chun Curiel MD [address] [place] [phone] PCP - General Family Practice 02/25/24 documented as of this encounter
--- OUTSIDE RECORDS SUMMARY | 2025-06-24 02:44 | XMS_ITS | Clinical Summary ---
Author Organization [facility] Coral Address [facility] [address] [place] [address] Care Team Providers Care Family Law Mediator Name Role Phone Chun Curiel MD Primary Care Provider [phone] Allergies Active Allergy Reactions Criticality Noted Date [...] involving multiple sites with positive rheumatoid factor (CMS/HCC) Take 1 Tablet (15 mg) by mouth daily. 30 Tablet 1 024 Active Additional Information Patient not taking.Reported on 06/22/2025 pilocarpine (SALAGEN) 5 mg TabletIndications:Sjogr en's syndrome with keratoconjunctivitis sicca Take 1 Tablet (5 mg) by mouth daily. Take one tablet by mouth for 90 days 90 Tablet 3 Active methocarbamoL (ROBAXIN) 500 mg tabletIndications:Shoul rubi pain, unspecified chronicity, unspecified laterality Take 1 Tablet (500 mg) by mouth 4 times daily for 10 days. 40 Tablet 025 2024 Active aluminum hydroxide-magnesium CARBONATE (Gaviscon) 95-358 mg/15 mL Suspension Take 15 mL by mouth 4 times daily as needed for Dyspepsia. 355 mL 2 Active lidocaine (lidocaine viscous 2%) 2 % Solution 5 mL by Mouth/Throat route every 6 hours as needed for Pain. 100 mL 2 Active PHENobarbital-hyoscyami fd-ulawaicw-llhuqduyyru () 16.2-0.1037-0.0194-0.00 65 mg/5 mL ElixirIndications:Shoul rubi pain, unspecified chronicity, unspecified laterality Take 5 mL by mouth every 8 hours as needed for Pain. 120 mL 1 Active methocarbamoL (ROBAXIN) 500 mg tablet Take 1 Tablet (500 mg) by mouth 4 times daily for 10 days. 40 Tablet 025 2024 Discontin ued(Reord er) methocarbamoL (ROBAXIN) 500 mg tablet Take 1 Tablet (500 mg) by mouth 4 times daily for 10 days. 40 Tablet 025 2024 Discontin ued(Alter edgardo therapy prescribe d) PHENobarbital-hyoscyami nw-pylbaqse-xzgovygwhck () 16.2-0.1037-0.0194-0.00 65 mg/5 mL Elixir Take 5 mL by mouth every 8 hours as needed for Pain. 120 mL 1 025 2024 Discontin ued(Reord er) PHENobarbital-hyoscyami jc-unnqlxls-akitncplbjw () 16.2-0.1037-0.0194-0.00 65 mg/5 mL Elixir Take 5 mL by mouth every 8 hours as needed for Pain. 120 mL 1 025 2024 Discontin ued(Alter edgardo therapy prescribe d) Hospital, Clinic, or Other Facility Administered Medication Ordered Dose Route Frequency Start Date End Date Status PHENobarbital/belladonna/ lidocaine 2%/gaviscon (GI COCKTAIL) oral solution 45 mLIndications:Pleuritic chest pain 45 mL Oral ONE TIME ONLY 06/22/2025 Active Active Problems Problem Noted Date Diagnosed [...] Encounters Date Type Department Care Team Description 06/23/2025 Orders Only [address] [address] Jaimie Caro FNP 06/23/[address] [address] Chun Curiel MD Medication Assistance 06/23/2025 Orders Only [facility] [address] [place] [address] Provider, Abstract 06/22/2025 11:40 AM CDT Office Visit [address] [address] Jaimie Caro, DIE DESIGNER APPRENTICE Pleuritic chest pain (Primary Dx); Status post cholecystectomy 06/22/2025 11:30 AM CDT Ancillary Procedure [address] [address] Jaimie Caro, DIE DESIGNER APPRENTICE Pleuritic chest pain 06/22/2025 Results Follow-Up [address] [address] Jaimie Caro, DIE DESIGNER APPRENTICE XR CHEST PA AND LATERAL 2 VW 06/22/2025 Nurse Triage [address] [address] Chun Curiel MD 06/14/2025 External Device Data ST[facility] ABSTRACTION Provider, Abstract 06/08/2025 External Device Data ST[place] ABSTRACTION Provider, Abstract 06/08/2025 External Device Data STL ABSTRACTION Provider, Abstract 06/07/[address] [address] Chun Curiel MD Patient Communication 05/18/2025 Orders Only [facility] Health Information Management [place] [address] [place] [address] Provider, Abstract 05/17/2025 External Device Data STL ABSTRACTION Provider, Abstract 05/10/2025 External Device Data STL ABSTRACTION Provider, Abstract 04/14/2025 External Device Data STL ABSTRACTION Provider, Abstract 04/04/2025 Orders Only [facility] Rheumatology- [facility] [place] [address] [phone] Roverto Diane MD Immunosuppression due to drug therapy 04/03/2025 Results Follow-Up [facility] [address] [address] Chun Curiel MD CBC WITH DIFFERENTIAL, COMPREHENSIVE METABOLIC PANEL, LIPID PANEL, TSH REFLEXIVE 04/01/[address] [address] Chun Curiel MD [facility] 03/28/[address] [address] Chun Curiel MD Provider Call 03/24/2025 3:00 PM CDT Office Visit [address] [address] Chun Curiel MD Medicare annual wellness visit, subsequent (Primary Dx); Dyslipidemia; Migraine without aura and without status migrainosus, not intractable; Cervical pain (neck) from Last 3 Months Family History Medical History Relation Name Comments Seizures Brother vic chen Cancer Father karishma wies Colon Cancer Father karishma wise Cancer Maternal Grandmother emmy moreno Hypertension Maternal Grandmother emmy moreno Kidney Disease Maternal Grandmother emmy moreno Asthma Mother truman wise Hypertension Paternal Grandmother emmy moreno Migraines Sister emmy boggs mother myself brother other sister Breast Cancer Neg Hx Melanoma Neg Hx Ovarian Cancer Neg Hx Pancreatic Cancer Neg Hx Uterine or Endometrial Cancer, Not Including Cervical Neg Hx Relation Name Status Comments Brother vic chen Alive Father karishma wise Maternal Grandmother emmy medleynmaria luisa Mother truman wise Alive Paternal Grandmother emmy medleynue Sister emmy boggs Alive Social History Tobacco Use Types Packs/Day Years [...] Mass Index 35.36 06/22/2025 11:03 AM CDT Plan of Treatment Upcoming Encounters Date Type Department Care Team (Late st Contact Info) Description 03/29/2026 10:20 AM CDT Office Visit [facility] [place] [facility] [address] [address] Chun Curiel MD [address] [place] [phone] Health Maintenance Due Date Last Done Comments DTAP/TDAP/TD VACCINES (1 - Tdap) 1983 FIT-DNA Q 3 years 2009 FIT/FOBT Q 1 year 2009 Flex Sig/CT Colonography Q 5 years 2009 ZOSTER VACCINE (1 of 2) 2014 RSV VACCINE (60+ or ) (1 - Risk 60-74 years 1-dose series) 2024 INFLUENZA VACCINE (#1) 2025 09/01/2024, 2021 PAP SMEAR 08/29/2025 08/29/2022 BREAST CANCER SCREENING 11/11/2025 11/11/20 24, 10/13/2024, 09/27/2022 Pre-Diabetes and Diabetes Screening 02/05/2027 02/06/2024 CERVICAL CANCER SCREENING 08/29/2027 HPV/Cotest (21-29) 08/29/2027 08/29/2022 HPV/Cotest (30-65) 08/29/2027 08/29/2022 COLORECTAL SCREENING 10/08/2027 10/08/2022, 10/08/2022, 12/08/2020 Colorectal Cancer Screening 10/08/2027 [place] Preventative Visit/Annual Wellness Visit Completed 03/24/2025, 09/01/2024, 03/20/2023, Additional history exists HEPATITIS B VACCINES Aged Out No long er eligible based on patient's age to complete this topic Procedures Procedure Name Priority Date/Time Associated Diagnosis Comments TROPONIN Routine 06/22/2025 11:51 AM CDT Pleuritic chest pain COMPREHENSIVE METABOLIC PANEL Routine 06/22/2025 11:51 AM CDT Pleuritic chest pain CBC WITH DIFFERENTIAL Routine 06/22/2025 11:51 AM CDT Pleuritic chest pain XR CHEST PA AND LATERAL 2 VW Routine 06/22/2025 11:26 AM CDT Pleuritic chest pain COMPREHENSIVE METABOLIC PANEL Routine 06/22/2025 10:13 AM CDT COMPREHENSIVE METABOLIC PANEL Routine 05/17/2025 8:55 AM CDT TSH REFLEXIVE Routine 03/24/2025 3:29 PM CDT Dyslipidemia LIPID PANEL Routine 03/24/2025 3:29 PM CDT Dyslipidemia COMPREHENSIVE METABOLIC PANEL Routine 03/24/2025 3:29 PM CDT Medicare annual wellness visit, subsequent CBC WITH DIFFERENTIAL Routine 03/24/2025 3:29 PM CDT Medicare annual wellness visit, subsequent MAMMO DIAG UNI RIGHT 3D ZORAN W OR WO CAD Routine 11/11/2024 1:39 PM STIFF LEG OPERATOR Inconclusive mammogram HEMOGLOBIN A1C Routine 02/06/2024 1:26 PM CDT Encounter for annual wellness visit (AWV) in Medicare patient COLONOSCOPY REPORT 10/08/2022 11 :20 AM STIFF LEG OPERATOR CERV/VAG CYTO SCREEN PAP W/HPV Routine 08/29/2022 11:03 AM CDT Routine general medical examination at [facility] Screening for malignant neoplasm of cervix from Last 3 Months or Most Recently Relevant to Health Maintenance Results * (ABNORMAL) CBC WITH DIFFERENTIAL (06/22/2025 11:51 AM CDT) Only the most recent of2 resultswithin the time period is included. WBC 8.7 3.8 - 10.8 Thousand/u L [...] [facility] Comment: Test Performed at: [facility] [address] [place] [address] Damon Elizabeth MD Blood 06/22/2025 11:5 1 AM CDT 06/22/2025 11:51 AM CDT Jaimie KUMARP HEMATOLOGY ORDERABLES Fin al Result Performing Organization Address [facility] Co de Phone Number [facility] [phone] [email or web address] [address] [place] [phone] * TROPONIN (06/22/2025 11:51 AM CDT) Pathologist [facility] TROPONIN I <3 < OR = 47 ng/L [email or web address] Comment: In accord with published recommendations, serial testing of troponin I at intervals of 2 to 4 hours for up to 12 to 24 hours is suggested in order to corroborate a single troponin I result. An elevated troponin alone is not sufficient to make the diagnosis of CA. Test Performed at: [facility] [address] [place] [address] Damon Elizabeth MD Blood 06/22/2025 11:5 1 AM CDT 06/22/2025 11:51 AM CDT Jaimie WINTERS CHEMISTRY ORDERABLES Dot gorman Result Performing Organization Address City/[facility]/ZIP Co de Phone Number [facility] [phone] [email or web address] [address] [place] [address] * (ABNORMAL) COMPREHENSIVE METABOLIC PANEL (06/22/2025 11:51 AM CDT) Only the most recent of4 resultswithin the time period is included. GLUCOSE 91 65 - 99 mg/dL [facility] [...] [facility] Comment: Test Performed at: [facility] [address] [facility] [place] [address] Damon Elizabeth MD Blood 06/22/2025 11:5 1 AM CDT 06/22/2025 11:51 AM CDT Jaimie KUMARP CHEMISTRY ORDERABLES Dot l Result [facility] [phone] [facility] [address] [place] [address] * XR CHEST PA AND LATERAL 2 [...] evaluation. No focal airspace disease. Jaimie Caro [facility] ORDERA BLES Final Result * TSH REFLEXIVE (03/24/2025 3:29 PM CDT) TSH 2.16 0.40 - 4.50 mIU/L [email or web address] Comment: Test Performed at: [facility] [address] [facility] [place] [address] Damon Elizabeth MD Blood 03/24/2025 3:29 PM CDT 03/25/2025 2:43 AM CDT us Chun Curiel MD CHEMISTRY ORDERABLES Final Resul t [facility] [phone] [facility] [place] [address] * (ABNORMAL) LIPID PANEL (03/24/2025 3:29 PM [...] factors. LDL-C is now calculated using the Cruzito-Flor calculation, which is a validated novel method providing better accuracy than the Friedewald equation in the estimation of LDL-C. Cruzito WILDE et al. ARTHUR. 2013;310(19): 6344-0640 (http://education.Enhanced Medical Decisions.[employer]/faq/RQK278) CHOL/HDL RATIO 5.0(H) <5.0 (calc) [facility] NON-HDL CHOLESTEROL 135(H) <130 mg/dL (calc) [facility] Comment: For patients with diabetes plus 1 major ASCVD risk factor, treating to a non-HDL-C goal of <100 mg/dL (LDL-C of <70 mg/dL) is considered a therapeutic option. Test Performed at: [facility] (Closed) [id number] [facility] [place] [place] [address] Damon Elizabeth MD Blood 03/24/2025 3:29 PM CDT 03/25/2025 2:43 AM CDT us Chun Curiel MD CHEMISTRY ORDERABLES Final Resul t [facility] [phone] [facility] [address] [address] [address] * MAMMO 3D ZORAN DIAGNOSTIC UNI RT 3D W OR WO CAD (11/11/2024 1:39 PM STIFF LEG OPERATOR) Anatomical Region Laterality Modality Breast Right Mammography 11/11/2024 12:2 4 PM STIFF LEG OPERATOR Impressions 11/11/2024 7:37 PM STIFF LEG OPERATOR IMPRESSION: BI-RADS 1. Negative exam. Continue annual screening mammography. Findings and verbal/written recommendations were conveyed to the patient after completion of the exam. [id number] Narrative 11/11/2024 7:37 PM STIFF LEG OPERATOR EXAMINATION: Right diagnostic mammography with tomosynthesis. Films [...] the patient after completion of the exam. [id number] Jaimie KUMARP MAMMO ORDERABLES Final Re sult * HEMOGLOBIN A1C (02/06/2024 1:26 PM CDT) HEMOGLOBIN A1C 5.4 <5.7 % of total Hgb [facility] Comment: For the purpose of screening for the presence of diabetes: <5.7% Consistent with the absence of diabetes 5.7-6.4% Consistent with increased risk for diabetes (prediabetes) > or =6.5% Consistent with diabetes This assay result is consistent with a decreased risk of diabetes. Currently, no consensus exists regarding use of hemoglobin A1c for diagnosis of diabetes in children. According to [place] Diabetes Association (ADA) guidelines, hemoglobin A1c <7.0% represents optimal control in non- diabetic patients. Different metrics may apply to specific patient populations. Standards of Medical Care in Diabetes(ADA). ESTIMATED AVERAGE GLUCOSE (MG/DL) 108 mg/dL [facility] ESTIMATED AVERAGE GLUCOSE (MMOL/L) 6.0 mmol/L [facility] Comment: This test was performed on the [employer] c8000 platform. Please be advised that [email or web address] will move hemoglobin A1c testing to the Leanne platform soon. In general, direct comparison of the results from different platforms is not recommended. Test Performed at: [facility] (Closed) [address] [address] [place] [address] Damon Elizabeth MD Blood 02/06/2024 1:26 PM CDT 02/07/2024 2:45 AM CDT Jaimie WINTERS CHEMISTRY ORDERABLES Dot l Result [facility] [phone] [facility] [address] [address] [address] * COLONOSCOPY REPORT (10/08/2022 11:20 AM STIFF LEG OPERATOR) Narrative Procedure Note Saurav Richardson MD - 10/08/2022 11:20 AM CST [facility] GI Patient Name: Shasha Wesley Procedure [...] In: 11:00:40 AM Scope Out: 11:12:56 AM [address] [place] [place] Saurav Richardson MD GI PROCEDURE ORDERABLES Final Result * CERV/VAG CYTO SCREEN PAP W/HPV (08/29/2022 11:03 AM CDT) CLINICAL INFORMATION [facility] Comment:Postmenopausal LAST MENSTRUAL PERIOD [facility] [place] Comment:NONE GIVEN PREV PAP: [facility] [place] Comment:NONE GIVEN PREV BX: [facility] [place] Comment:NONE GIVEN SOURCE [facility] [place] Comment:ENDOCERVIX ADEQUACY: [facility] Comment: Satisfactory for evaluation. Endocervical/transformation zone component present. Age and/or menstrual status not provided PAP INTERP [facility] Comment:Negative for intraep ithelial lesion or malignancy. COMMENT (PAP TEST) Q uest [facility] Comment: This Pap test has been evaluated with computer assisted technology. GEOCHEMIST: Sid Haines Comment: LM, CT(ASCP) CT screening location: [place] [address] [place] [address] EXPLANATORY NOTE Que [facility] Comment: EXPLANATORY NOTE: The Pap is a [...] information. HPV E6/E7 Not Detected Not Detected [facility] Comment: Methodology: Marketing Consultant-Mediated Amplification This assay detects E6/E7 viral messenger RNA (mRNA) from 14 high-risk HPV types (16,18,31,33,35,39,45,51,52,56,58,59,66,68). Cervical sources are required for HPV testing. If a vaginal source from a patient who has had a total hysterectomy with removal of cervix was submitted, please contact the testing laboratory for alternative testing options. For additional information, please refer to http://education.Transcriptic/faq/BKT101i1 (This link if provided for information/ educational purposes only.) Test Performed at: [facility] (Closed) [address] [place] [address] Gilles De La Rosa D.O., MPH SL Genital SWAB OF ENDOCERVIX / Unknown 08/29/2022 11:03 AM CDT 08/30/2022 6:52 AM CDT Randee Roque Bell DIE DESIGNER APPRENTICE PATHOLOGY/CYTOLOGY ORDERABLES Final Result [facility] [phone] [facility] [address] [place] [address] from Last 3 Months or Most Recently Relevant to Health Maintenance [facility] [place] [phone] Advance Directives For more information, please contact: [phone] * Full Code (Latest Code Status on File) Date Activated Date Inactivated Comments 10/08/2022 9:44 AM 10/08/2022 2:00 PM Care Teams Family Law Mediator Relationship Specialty Start Date End Date Chun Curiel MD [address] [place] [address] [place] [phone] PCP - General Family Practice 02/25/24
== END 2025-06-22 17:14 | disposition home or self-care (01) ==
PROVIDERS: Emergency Provider Emergency Medicine; PCP Family Medicine
DX: R07.9 Chest pain, unspecified (principal); Z87.891 Personal history of nicotine dependence
CPT/HCPCS: 36415; 71275; 80053; 84484; 85025; 93005; 96374; 99285; J1885

== ENCOUNTER → 2025-08-17 10:32 | Outpatient (BNVA) | payer MEDICARE, SELFPAY | PROVIDERS: PCP Family Medicine; Visit Provider Internal Medicine Rheumatology | DX: M35.00 Sjogren syndrome, unspecified (principal); M05.79 Rheumatoid arthritis with rheumatoid factor of multiple sites without organ or systems involvement; Z79.899 Other long term (current) drug therapy; Z71.85 Encounter for immunization safety counseling | CPT/HCPCS: 36415; 82565; 84520; 99214 ==